=== PATIENT | male | born 1935 | race Caucasian/White ===

== ENCOUNTER 2018-04-06 09:35 | Inpatient (IN) ==
[2018-04-06] MEDS ORDERED: Naloxone 0.4 MG/ML INJ IVP PRN (11:46)
[2018-04-06] MEDS ORDERED: traMADol 50 MG TABLET PO PRN (11:46)
[2018-04-06] MEDS ORDERED: *HR* Heparin 5,000 UNIT/ML VIAL IVP PRN ×4 (11:54→13:02)
[2018-04-06] MEDS ORDERED: *HR* Heparin 5,000 UNIT/ML VIAL IVP ONE ×2 (11:54→13:02)
[2018-04-06] MEDS ORDERED: Vancomycin 1 EACH in 0.9 % Sodium Chloride 250 ML IVPB SCH (12:00)
[2018-04-06] MEDS ORDERED: Heparin 25,000 UNIT/500 ML D5W 25,000 UNIT/500 ML BAG IVC SCH (12:00)
[2018-04-06] MEDS ORDERED: Aspirin 325 MG TABLET PO ONE (12:00)
[2018-04-06] MEDS ORDERED: *HR* Ticagrelor 90 MG TABLET PO ONE (12:01)
[2018-04-06] MEDS ORDERED: Acetaminophen 325 MG TABLET PO PRN (12:02)
[2018-04-06 12:33] LABS: Hematocrit 34.5 % (37.5-50.1); Hemoglobin 11.2 g/dL (12.9-16.9); Mean Corpuscular HGB Conc 32.5 g/dL (31.6-35.5); Mean Corpuscular Hemoglobin 28.2 pg (28.0-33.3); Mean Corpuscular Volume 86.9 fL (83.0-100.0); Mean Platelet Volume 9.5 fL (9.4-12.4); Platelet Count 215 K/mcL (140-400); Red Blood Count 3.97 M/mcL (4.19-5.50); Red Cell Distribution Width 13.6 % (11.5-14.5)
[2018-04-06 12:47] LABS: INR 1.2; Prothrombin Time 13.7 Seconds (9.4-12.1)
--- NOTE | 2018-04-06 13:06 | Cardiology Consult Note ---
<Marleny Bee - Last Filed: 04/06/18 13:18> Date of Encounter: 04/06/18 Time of Encounter: 12:30 Assessment and Plan (1) Elevated troponin Current Visit: No Status: Acute Patient presented to [place] ED found to have urosepsis, Tmax 103.[address] abd/pelvis demonstrated partially obstructive renal calculi. Troponin 2.0, 1.99. ST/T wave abnormalities noted, however were present in prior ECGs. No chest pain/discomfort. NSTEMI type I vs. II; suspect demand ischemia however ACS cannot be ruled out. Agree with IV heparin gtt; ideally infuse for 24-48 hours. Continue asa, statin, BB. Check TTE to eval structure and function. Continue to trend troponin. Given advanced age, dementia, and sepsis would recommend conservative approach at this time. Cardiac rehab not warranted at this time. Will continue to follow. (2) Sepsis Current Visit: Yes Status: Acute Sepsis secondary to obstructing renal calculi. Nephrology consulted; spoke with Hospitalist who also requested cardiac clearance prior to planned urologic procedure. On IV atb. T max 103.1 in the past few hours Qualifiers: Sepsis type: sepsis due to unspecified organism Qualified Code(s): A41.9 - Sepsis, unspecified organism (3) Preoperative cardiovascular examination Current Visit: Yes Status: Acute Requested risk stratification prior to Urologic procedure--reportedly planned for 04/07/18. Troponin 2.0, 1.9 in the setting of urosepsis. Patient denies chest pain or discomfort, however is alert to self/location only and has baseline dementia. ST/T wave abnormalities present on ECG, however were also present on prior ECGs. No prior CV work-up or testing noted. Resides at SNF, unable to describe activity obtaining 4 METs. Given clinical presentation including sepsis, would recommend proceeding with urgent/emergent urologic procedure without additional cardiac testing. Echo ordered, pending. Will further discuss and review with Dr. Bill Dukes. Discussion w patient/family: The assessment and plan as outlined above was discussed with the patient and/or family members who expressed understanding and agreement. All questions were answered. Thank you for involving us in the care of your patient. Please call with any questions. History of Present Illness Consult date: 04/06/18 Requesting physician: Fabien Francis Consult reason: Elevated troponin Chief complaint: Flu History of present illness: Mr. Green is a 82 year old male with PMHx significant of dementia who presented as a transfer from [place] ED, from SNF, due to urosepsis. Please note patient is a poor historian and unable to recall events surround [facility], he is pleasant however is oriented to location and person only. Upon exam, he tells me he has not felt well over the past several days, he reports he had "the flu." Per ED notes, patient had cough, elevated temperatures, and abnormal urine studies at the skilled nursing for the past 2-3 days; symptoms persistent so patient therefore was brought to [place] ED. Per notes, patient was hypoxic upon EMS arrival (SPO2 low 80's); he also had emesis en route to the ED. Labs/imaging indicate urosepsis. Troponin level was checked and was elevated at 2.0; Cardiology was then consulted for further management. No prior CV testing available. Past Med Surg Social Fam HX - Past Medical History Attestation: Yes The following information was validated with the patient. Source: old records reviewed Medical history: osteoporosis, other Additional medical history: VIT D DEF. Psychiatric history: no psych history - Past Surgical History Surgical History: other Additional surgical history: right hip fracture - Social History Smoking Status: Former smoker Smokeless Tobacco Status: No Alcohol use: none Drug use: none - Family History Father History Unknown: Yes Living Status: Mother History Unknown: Yes Living Status: Medications and Allergies RX: Magnesium Oxide [Magnesium] 400 mg PO DAILY 06/11/15 [History] RX: Vitamin B Complex [B Complex] 1 each PO BID 06/11/15 [History] Acetaminophen [Tylenol] 1,000 mg PO TID 11/01/15 [History] Escitalopram [Lexapro] 10 mg PO DAILY 11/01/15 [History] Cholecalciferol (Vitamin D3) [Vitamin D] 50,000 unit PO QMONTH 04/06/18 [History] Allergy/AdvReac Type Severity Reaction Status Date / Time cephalexin [From Keflex] Allergy See Verified 06/11/15 16:57 Comments All Systems Review: The remainder of the systems were reviewed and are negative - Cardiovascular Cardiovascular: as per [facility] Physical Examination Vital Signs, Last 4 Hours Temp Pulse Resp BP Pulse Ox 04/06/18 11:13 98.0 F 113 17 122/65 95 General: Conversant, No Apparent Distress, Other (pleasant, forgetful) HEENT: Atraumatic Cardiac: Other (tachycardiac) Lungs: Other (Decreased bases) Neuro: Alert and responsive (to self, location) Abdomen: Soft Skin: No rashes noted on visualized skin Musculoskeletal: No Chest Wall Tenderness Extremities: No Edema, Normal Pulses Results 04/06/18 12:18 Lab Results 04/06/18 04/06/18 04/06/18 12:18 12:18 12:18 WBC 15.9 H D Hgb 11.2 L Hct 34.5 L Plt Count 215 INR 1.2 Troponin I 1.99 H* Active Medications Acetaminophen (Tylenol) 650 mg PO Q6HR PRN PRN Reason: Fever >101 Stop: 10/06/18 12:03 Carvedilol (Coreg) 3.125 mg PO BIDWM [facility]; Protocol Stop: 10/06/18 17:01 Heparin Sodium (Porcine) (Heparin) 6,000 unit 70 unit/kg (6000 unit) IVP Q6HR PRN PRN Reason: SEE COMMENTS Stop: 10/06/18 13:03 Heparin Sodium (Porcine) (Heparin) 3,000 unit 35 unit/kg (3000 unit) IVP Q6H PRN PRN Reason: SEE COMMENTS Stop: 10/06/18 13:03 Dextrose/Sodium Chloride (D5% And 0.9% Nacl 1000 Ml) 1,000 mls @ 75 mls/hr IVC .[id number] [facility] Stop: 10/06/18 12:01 Piperacillin Sod/Tazobactam (Sod 3.375 gm/ Sodium Chloride) 100 mls @ 25 mls/hr IVPB Q8H [facility] Stop: 10/06/18 14:01 Heparin Sodium/Dextrose (Heparin 25,000 Unit/500 Ml D5w) 25,000 unit in 500 mls @ 24.052 mls/hr IVC .[id number] [facility]; Protocol Stop: 10/06/18 13:16 Vancomycin HCl 1,750 mg/ (Sodium Chloride) 500 mls @ 333.3 mls/hr IVPB ONCE ONE Stop: 04/06/18 14:37 Vancomycin HCl 1,250 mg/ (Sodium Chloride) 250 mls @ 166.67 mls/hr IVPB Q24H [facility] Stop: 10/07/18 13:01 Naloxone HCl (Narcan) 0.4 mg IVP Q2MIN PRN PRN Reason: SEE COMMENTS Stop: 10/06/18 11:47 Tramadol HCl (Ultram) 50 mg PO Q6HR PRN PRN Reason: Moderate Pain Stop: 10/06/18 11:47 - EKG Interpretation EKG results cardiology: personally reviewed Consult Discharge Plan - Plan Referrals: NONE,PCP [Primary Care Provider] - <Bill Dukes - Last Filed: 04/06/18 14:28> - Attending Attestation I have personally performed a face to face evaluation on this patient. I have reviewed and agree with the care plan. History and Exam by me shows: Presented for possible urosepsis. Troponin noted to be elevated of unclear significance, denies cardiac complaints. Would check echo but will likely not require invasive cardiac evaluation. Assessment and Plan Discussion w patient/family: The assessment and plan as outlined above was discussed with the patient and/or family members who expressed understanding and agreement. All questions were answered. Thank you for involving us in the care of your patient. Please call with any questions. History of Present Illness History of present illness: Mr. Green is a 82 year old male All Systems Review: The remainder of the systems were reviewed and are negative Physical Examination Vital Signs, Last 4 Hours Temp Pulse Resp BP Pulse Ox 04/06/18 13:30 95 04/06/18 11:13 98.0 F 113 17 122/65 95 Results 04/06/18 12:18 Lab Results 04/06/18 04/06/18 04/06/18 12:18 12:18 12:18 WBC 15.9 H D Hgb 11.2 L Hct 34.5 L Plt Count 215 INR 1.2 Troponin I 1.99 H*
[2018-04-06] MEDS: Heparin 25,000 UNIT/500 ML D5W 25,000 UNIT/500 ML BAG IVC SCH (13:42)
--- NOTE | 2018-04-06 13:46 | Internal Med History&Physical ---
Date of Encounter: 04/06/18 Time of Encounter: 13:42 Internal Medicine - H&P: HPI Chief complaint: fever of 103.0 Admitted From: Long-term Nursing Facility Plans for Post Hospital Care: Transfer [facility] History of present illness: Mr. Green is a 82 year old male H significant for Dementia and Osteoporosis. Patient was transferred to this hospital from [place] where he was taken from a [facility] due to high fever of 103.0 as per report. Patient reports that he has not been feeling well for the past couple of days. Patient is unable to provide much information due to his baseline dementia. The patient denies chest pain or flank pain, nausea, vomiting. Patient recently diagnosed with proteous in the urine. At [place] ED patient found to be febrile, Urine positive for a UTI. CT abd/pelvis done: 7 mm mid right ureteral calculus causing moderate proximal hydroureteronephrosis. For which a transfer was requested for further management and urology evaluation. Past Med Surg Social Fam HX - Past Medical History Medical history: osteoporosis, other Additional medical history: VIT D DEF. Psychiatric history: no psych history - Past Surgical History Surgical History: other Additional surgical history: right hip fracture - Social History Smoking Status: Former smoker Smokeless Tobacco Status: No Alcohol use: none Drug use: none - Family History Father History Unknown: Yes Living Status: Mother History Unknown: Yes Living Status: Internal Medicine - H&P: Meds RX: Magnesium Oxide [Magnesium] 400 mg PO DAILY 06/11/15 [History] RX: Vitamin B Complex [B Complex] 1 each PO BID 06/11/15 [History] Acetaminophen [Tylenol] 1,000 mg PO TID 11/01/15 [History] Escitalopram [Lexapro] 10 mg PO DAILY 11/01/15 [History] Cholecalciferol (Vitamin D3) [Vitamin D] 50,000 unit PO QMONTH 04/06/18 [History] Allergy/AdvReac Type Severity Reaction Status Date / Time cephalexin [From Keflex] Allergy See Verified 06/11/15 16:57 Comments All Systems PM: A 10-system review of systems was performed and is negative for pertinent findings except as documented above in the HPI. Review of systems: Unable to obtain thorough review of system due to patient dementia. - Cardiovascular Cardiovascular ROS IM: no chest pain, no dyspnea - Gastrointestinal Gastrointestinal: no abdominal pain, no nausea - Genitourinary Genitourinary ROS male: no urinary frequency, no urinary urgency - Constitutional Vitals: Temp Pulse Resp BP Pulse Ox 98.0 F 113 17 122/65 95 04/06/18 11:13 04/06/18 11:13 04/06/18 11:13 04/06/18 11:13 04/06/18 11:13 Exam: General: Awake, oriented to person, not time or place. No distress. Skin: Normal color, no rash, no lesions. HEENT: EOM, pupils equal, round and reactive. Cardiovascular: Tachycardia, Normal S1 & S2, no rubs, murmurs or gallops. Lungs: Clear to auscultation b/l, no wheezes, rales or crackles. Abdomen: Soft, non-tender, no rigidity. NABS in all 4 quadrants. No CVA tenderness. Extremities: No deformity, no edema or tenderness, no joint swelling or clubbing. Neurological: Baseline dementia. Unable to perform a complete neuro exam Rest of the physical exam is non contributory Internal Med - H&P Results - Labs CBC & Chem 7: 04/06/18 12:18 Labs: Short CBC 04/06/18 Range/Units 12:18 WBC 15.9 H D (4.3-11.1) K/mcL Hgb 11.2 L (12.9-16.9) g/dL Hct 34.5 L (37.5-50.1) % Plt Count 215 (140-400) K/mcL Cardiac Enzymes 04/06/18 Range/Units 12:18 Troponin I 1.99 H* (< 0.04) ng/mL - Assessment and plan (1) Urinary tract infection Current Visit: No Status: Acute Assessment and plan: Complicated UTI. Patient recently treated for proteous. Recurrent uti possible due to obstructive nephrolitiasis. Plan Blood and urine culture started on broad spectrum antibiotics Urology consulted repeat lactic acid Gentle IV hydration. Qualifiers: Urinary tract infection type: urethritis Qualified Code(s): N34.2 - Other urethritis (2) Elevated troponin Current Visit: No Status: Acute Assessment and plan: Possible due to Sepsis in the setting of UTI vs NSTEMI Plan Cardiology consulted Patient started on a Heparin drip Serial trops Carvedilol low dose atorvastatin aspirin 325mg/PO once Aspirin 81mg/PO daily TTE 12 lead EKG continue telemetry monitoring. (3) Hydronephrosis concurrent with and due to calculi of kidney and ureter Current Visit: No Status: Acute Assessment and plan: CT/CT abd pelvis wo no iv no oral IMPRESSION: 1. 7 mm mid right ureteral calculus causing moderate proximal hydroureteronephrosis. 2. 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 3. Patchy airspace opacities in the bilateral medial lung bases may reflect atelectasis, but nonspecific infectious or inflammatory pneumonitis including aspiration type are not excluded. Plan: urology has been consulted will follow recommendations. (4) MANFRED (acute kidney injury) Current Visit: Yes Status: Acute Assessment and plan: Possible due to obstructive uropathy vs low preload due to sepsis? Plan gentle IV hydration Avoid nephrotoxic medications (5) Dementia Current Visit: Yes Status: Chronic Qualifiers: Dementia type: unspecified type Dementia behavioral disturbance: without behavioral disturbance Qualified Code(s): F03.90 - Unspecified dementia without behavioral disturbance (6) DVT prophylaxis Current Visit: Yes Status: Acute Assessment and plan: patient on a heparin drip due to elevated trops. - Time Spent With Patient Total time spent is greater than 50% in coordination of care (as documented) at patient's floor/unit and/or counseling patient: 25 - 35 minutes
[2018-04-06] MEDS: Piperacillin/Tazobactam 3.375 GM in 0.9 % Sodium Chloride Mini Bag 100 ML IVPB SCH ×2 (14:16→21:33)
[2018-04-06 16:21] LABS: Bilirubin,Urine Negative (Negative); Blood,Urine Large (Negative); Clarity,Urine Cloudy (Clear); Color,Urine Dark Yellow (Yellow); Glucose,Urine (UA) Normal (Normal); Ketones,Urine Negative (Negative); Leukocyte Esterase,Urine Large (Negative); Nitrite,Urine Positive (Negative); PH,Urine 6.5 pH Units (5.0-8.0); Protein,Urine 100 mg/dL (Neg-Trace); Specific Gravity,Urine > 1.030 (1.010-1.025); Urobilinogen,Urine Normal (Normal)
[2018-04-06 16:25] LABS: Bacteria,Urine Few per hpf (None-Few); Hyaline Casts,Urine None Seen per lpf (None-Few); RBC,Urine 50-100 per hpf (0-3); Squamous Epithelial Cell,Urine None Seen per lpf (None-Few); WBC,Urine TNTC per hpf (0-3)
--- NOTE | 2018-04-06 17:42 | Urology - Consult Note ---
Date of Encounter: 04/06/18 Time of Encounter: 17:40 - Assessment and Plan (1) Sepsis Current Visit: Yes Status: Acute Assessment and plan: Continue broad-spectrum antibiotics until cultures return Qualifiers: Sepsis type: sepsis due to unspecified organism Qualified Code(s): A41.9 - Sepsis, unspecified organism (2) Hydronephrosis concurrent with and due to calculi of kidney and ureter Current Visit: No Status: Acute Assessment and plan: Patient was prepped and draped in normal sterile fashion. Timeout procedure performed. I then proceeded to place a flexible cystoscope into the patient's penis and advanced the bladder. I was able to cannulate the right ureteral o rifice using a Glidewire. I then placed a 6 x 28 cm stent with good curl seen in the right kidney and in the bladder using static KUB images for clarification. I then replaced the catheter into the patient's bladder. (3) Urinary tract infection Current Visit: No Status: Acute Assessment and plan: Continue with antibiotics until cultures return Qualifiers: Urinary tract infection type: urethritis Qualified Code(s): N34.2 - Other urethritis Urology CN:HPI Consult date: 04/06/18 Reason for consult Urology: Hydronephrosis Requesting physician: Fabien Francis History of present illness: Chriss is a 82-year-old male who was transferred from outside facility secondary to possible UTI with sepsis. Patient was found on CT scan of her proximal right mid ureteral stone. Patient denies any flank pain. He has been having some nausea and vomiting. Urinalysis was supposedly nitrite positive but I do not have this for review. Patient was also febrile at outside facility. Patient was found on transfer to have an elevated troponin of 2. Past Med Surg Social Fam HX - Past Medical History Medical history: osteoporosis, other Additional medical history: VIT D DEF. Psychiatric history: no psych history - Past Surgical History Surgical History: other Additional surgical history: right hip fracture - Social History Smoking Status: Former smoker Smokeless Tobacco Status: No Alcohol use: none Drug use: none - Family History Mother History Unknown: Yes Living Status: Father History Unknown: Yes Living Status: Medications and Allergies Magnesium Oxide [Magnesium] 400 mg PO DAILY 06/11/15 [History] Vitamin B Complex [B Complex] 1 each PO BID 06/11/15 [History] Acetaminophen [Tylenol] 1,000 mg PO TID 11/01/15 [History] Escitalopram [Lexapro] 10 mg PO DAILY 11/01/15 [History] Cholecalciferol (Vitamin D3) [Vitamin D] 50,000 unit PO QMONTH 04/06/18 [History] Allergy/AdvReac Type Severity Reaction Status Date / Time cephalexin [From Keflex] Allergy See Verified 06/11/15 16:57 Comments Review of Systems - Constitutional fever(s), no chills - EENT Nose, mouth and throat: no dizziness - Cardiovascular no chest pain - Respiratory no cough Exam Initial Vital Signs Temp Pulse Resp BP Pulse Ox 98.0 F 113 17 122/65 95 04/06/18 11:13 04/06/18 11:13 04/06/18 11:13 04/06/18 11:13 04/06/18 11:13 - General physical appearance Present: well developed, well nourished - Eyes Present: PERRL - Respiratory Present: normal respiratory effort - Cardiovascular Cardiovascular exam IM: RRR Urology Results - Labs 04/06/18 12:18 Abnormal lab results WBC 15.9 K/mcL (4.3-11.1) H D 04/06/18 12:18 RBC 3.97 M/mcL (4.19-5.50) L 04/06/18 12:18 Hgb 11.2 g/dL (12.9-16.9) L 04/06/18 12:18 Hct 34.5 % (37.5-50.1) L 04/06/18 12:18 PT 13.7 Seconds (9.4-12.1) H 04/06/18 12:18 Heparin Anti-Xa, Unfract 0.00 IU/mL (0.30-0.70) L 04/06/18 12:18 Troponin I 1.99 ng/mL (< 0.04) H* 04/06/18 12:18 Urine Clarity Cloudy (Clear) A 04/06/18 15:30 Ur Specific [place] > 1.030 (1.010-1.025) H 04/06/18 15:30 Urine Protein 100 mg/dL (Neg-Trace) H 04/06/18 15:30 Urine Blood Large (Negative) H 04/06/18 15:30 Urine Nitrite Positive (Negative) A 04/06/18 15:30 Ur Leukocyte Esterase Large (Negative) H 04/06/18 15:30 Urine Microscopic RBC 50-100 per hpf (0-3) H 04/06/18 15:30 Urine Microscopic WBC TNTC per hpf (0-3) H 04/06/18 15:30 All other labs normal. - Imaging CT scan - abdomen: image reviewed CT scan - pelvis: image reviewed Consult Discharge Plan - Plan Referrals: NONE,PCP [Primary Care Provider] -
[2018-04-06] MEDS: D5% in 0.9% NACL 1,000 ML IVC SCH (18:39)
[2018-04-07 03:21] LABS: Acinetobacter baumannii by PCR Not Detected (Not Detect); Candida albicans by PCR Not Detected (Not Detect); Candida glabrata by PCR Not Detected (Not Detect); Candida krusei by PCR Not Detected (Not Detect); Candida parapsilosis by PCR Not Detected (Not Detect); Candida tropicalis by PCR Not Detected (Not Detect); Enterobacter cloacae Cmplx PCR Not Detected (Not Detect); Enterobacteriaceae by PCR Not Detected (Not Detect); Enterococcus by PCR Not Detected (Not Detect); Escherichia coli by PCR Not Detected (Not Detect); Klebsiella oxytoca by PCR Not Detected (Not Detect); Klebsiella pneumoniae by PCR Not Detected (Not Detect); Proteus by PCR Not Detected (Not Detect); Pseudomonas aeruginosa by PCR Not Detected (Not Detect); Serratia marcescens by PCR Not Detected (Not Detect); Staphylococcus aureus by PCR Not Detected (Not Detect); Staphylococcus by PCR Not Detected (Not Detect); Streptococcus agalactiae(B)PCR Not Detected (Not Detect); Streptococcus by PCR Not Detected (Not Detect); Streptococcus pneumoniae PCR Not Detected (Not Detect); Streptococcus pyogenes (A) PCR Not Detected (Not Detect); blaKPC Carbapenem-Resist Gene Not Detected (Not Detect); mecA Methicillin-Resist Gene Not Detected (Not Detect); vanA/B Vancomycin-Resist Genes Not Detected (Not Detect)
[2018-04-07 03:23] LABS: Basophils % 0.4 %; Eosinophils # 0.1 K/mcL (0.0-0.6); Eosinophils % 0.8 %; Hematocrit 30.2 % (37.5-50.1); Hemoglobin 10.1 g/dL (12.9-16.9); Immature Granulocytes % 0.5 % (0-4); Lymphocytes # 1.2 K/mcL (0.6-4.6); Lymphocytes % 11.4 %; Mean Corpuscular HGB Conc 33.4 g/dL (31.6-35.5); Mean Corpuscular Hemoglobin 28.9 pg (28.0-33.3); Mean Corpuscular Volume 86.3 fL (83.0-100.0); Mean Platelet Volume 9.9 fL (9.4-12.4); Monocytes % 9.6 %; Neutrophils # 8.2 K/mcL (1.6-8.9); Platelet Count 183 K/mcL (140-400); Red Cell Distribution Width 13.9 % (11.5-14.5); Segmented Neutrophils % 77.3 %
[2018-04-07 03:42] LABS: Magnesium 1.9 mg/dL (1.6-2.6); Phosphorous 2.6 mg/dL (2.7-4.5)
[2018-04-07] MEDS: Piperacillin/Tazobactam 3.375 GM in 0.9 % Sodium Chloride Mini Bag 100 ML IVPB SCH ×3 (05:46→21:11)
[2018-04-07] MEDS: D5% in 0.9% NACL 1,000 ML IVC SCH (08:19)
--- NOTE | 2018-04-07 09:58 | Internal Med Progress Note ---
Hospitalist Progress Note - Encounter Date of Encounter: 04/07/18 Time of Encounter: 08:00 - Subjective Interval History: Patient was seen and examined at bedside At baseline is demented however he denies any chest pain, fever, nausea, vomiting, diarrhea, flank pain Denies pain - Exam Vitals: Temp Pulse Resp BP Pulse Ox 99.1 F 92 17 131/75 94 04/07/18 08:18 04/07/18 08:18 04/07/18 08:18 04/07/18 08:18 04/07/18 08:18 Exam: General: Patient is alert, oriented, no acute distress, speaks in full sentences Head: atraumatic, normocephalic, Eye: normal appearance, PERRL, no scleral icterus, no conjunctival injection ENT: mucous membranes moist, normal external ear exam Neck: normal inspection, trachea midline, full ROM, no carotid bruits Chest: normal inspection, symmetric chest rise Respiratory: Good respiratory effort. Bilateral breath sounds are clear without wheezing, crackles, or rhonchi. Cardiovascular: Regular rate and rhythm. s1 and s2 No clicks, rubs, gallops, or murmors. Abdomen: Bowel sounds present normoactive x-4 quadrants. Abdomen is soft, n ondistended. no Epigastric tenderness. No guarding or rebound. No organomegaly noted, musculoskeletal: Spontaneously moving all extremities. no edema, no calf tenderness Skin: warm, dry, intact. Neuro: Alert and oriented to himself and place ( knows this is [facility]) not to time ( does not know the year, however knows it is fall) or person ( does not know he president) Has baseline dementia Sensation light touch intact. Cranial nerves 2-12 is intact. Moving all extremities. Psych: Patient's affect is normal Herrera with minimal urine - Assessment and Plan (1) Gram negative sepsis Current Visit: Yes Status: Acute Assessment and Plan: Patient presented with tachycardia of 113, and fever of 103 from the alf Leukocytosis resolved Fever has resolved Was found to have urinary tract infection, along with 7 mm mid right ureteral calculus status post stent placement Was started on vancomycin and Zosyn for broad-spectrum coverage Vancomycin discontinued on 04/07 Will continue Zosyn Blood cultures from [facility] growing gram-negative rodswill follow [facility] (2) Hydronephrosis concurrent with and due to calculi of kidney and ureter Current Visit: No Status: Acute Assessment and Plan: Urology on board status post stent placement Has fully with minimal urine We will follow urology recommendations CT/CT abd pelvis wo no iv no oral IMPRESSION: 1. 7 mm mid right ureteral calculus causing moderate proximal hydroureteronephrosis. 2. 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 3. Patchy airspace opacities in the bilateral medial lung bases may reflect atelectasis, but nonspecific infectious or inflammatory pneumonitis including aspiration type are not excluded. (3) Complicated UTI (urinary tract infection) Current Visit: Yes Status: Acute Assessment and Plan: will continue zosyn Had previous Proteus UTI that was sensitive to zosyn urine cx are pending (4) Acute renal failure Current Visit: Yes Status: Acute Assessment and Plan: Most likely secondary to 7 mm mid right ureteral calculus causing moderate proximal hydroureteronephrosis. Status post stent placement by urology We will continue gentle hydration Strict intake and output Avoid nephrotoxic medications will continue to monitor renal functions closely (5) Elevated troponin Current Visit: No Status: Acute Assessment and Plan: On presentation to [facility] he was found to have elevated troponin of 1.99 which trended up to 3.28 and now 2.87 Most likely secondary to supply versus demand mismatch from sepsis/tachycardia cannot rule out underlying CAD Cardiology was consulted We will continue heparin drip Echocardiogram to evaluate LV function We will continue aspirin, statin, beta blockers (6) Dementia Current Visit: Yes Status: Chronic Assessment and Plan: Has history of dementia was likely exacerbated with the gram-negative bacteremia We will continue frequent redirection Fall precaution, aspiration precaution (7) DVT prophylaxis Current Visit: Yes Status: Acute Assessment and Plan: on heparin drip - Time Spent with Patient Total time spent is greater than 50% in coordination of care (as documented) at patient's floor/unit and/or counseling patient: Internal Medicine: Result - Labs CBC & Chem 7: 04/07/18 02:49 Labs: Short CBC 04/06/18 04/07/18 Range/Units 12:18 02:49 WBC 15.9 H D 10.6 (4.3-11.1) K/mcL Hgb 11.2 L 10.1 L (12.9-16.9) g/dL Hct 34.5 L 30.2 L (37.5-50.1) % Plt Count 215 183 (140-400) K/mcL Neutrophils # 8.2 (1.6-8.9) K/mcL Cardiac Enzymes 04/06/18 04/06/18 04/06/18 Range/Units 12:18 17:48 23:50 Troponin I 1.99 H* 1.84 H* 3.28 H* (< 0.04) ng/mL 04/07/18 Range/Units 06:24 Troponin I 2.87 H* (< 0.04) ng/mL Urine 04/06/18 Range/Units 15:30 Urine Color Dark Yellow (Yellow) Urine Clarity Cloudy A (Clear) Urine pH 6.5 (5.0-8.0) pH Units Ur Specific [place] > 1.030 H (1.010-1.025) Urine Protein 100 H (Neg-Trace) mg/dL Urine Glucose (UA) Normal (Normal) mg/dL - ABG Interpretation ABG results: PT/INR, D-dimer PT 13.7 Seconds (9.4-12.1) H 04/06/18 12:18 - Impressions Impressions Abdomen X-Ray 04/06/18 16:10 IMPRESSION: Fluoroscopy was utilized for the purposes of right ureteral stent deployment. Unremarkable bowel gas pattern. D/ / 04/06/2018 17:01:24 Rohan Hernandes MD / ian Interpreting Provider: Rohan Hernandes MD Consult Discharge Plan - Plan Referrals: NONE,PCP [Primary Care Provider] - (4) Acute renal failure Qualifiers: Acute renal failure type: unspecified Qualified Code(s): N17.9 - Acute kidney failure, unspecified (6) Dementia Qualifiers: Dementia type: unspecified type Dementia behavioral disturbance: without behavioral disturbance Qualified Code(s): F03.90 - Unspecified dementia without behavioral disturbance
[2018-04-07] MEDS ORDERED: Aminoglycoside Consult 1 EACH MC ONE (10:23)
[2018-04-07] MEDS: Aspirin 81 MG TAB.CHEW PO SCH (11:18)
[2018-04-07] MEDS: Heparin 25,000 UNIT/500 ML D5W 25,000 UNIT/500 ML BAG IVC SCH (11:20)
[2018-04-07] MEDS: Cholecalciferol (D-3) 1,000 UNIT TABLET PO SCH (11:27)
--- NOTE | 2018-04-07 11:54 | Electrocardiograph Report ---
[address] [place] [address] Test Date: 2018-04-06 Pat Name: Chriss Green Department: 111 Room: 2NE18 Gender: M [employer] Director: : [id number] Requested By: Fabien Francis Order Number: [id number] Reading MD: Elis Yip Measurements Intervals [place] Rate: 106 P: 40 CT: 147 QRS: -5 QRSD: 93 T: -12 QT: 337 QTc: 399 Interpretive Statements SINUS TACHYCARDIA INFERIOR MYOCARDIAL INFARCTION, PROBABLY OLD Electronically Signed On 04-07-2018 11:53:15 EDT by Elis Yip
--- NOTE | 2018-04-07 12:15 | Urology Progress Note ---
Date of Encounter: 04/07/18 Time of Encounter: 12:13 - Assessment and Plan (1) Sepsis Current Visit: Yes Status: Inactive Assessment and plan: Recommend to continue broad-spectrum antibiotics until cultures return. Patient will need two-week course of antibiotics Qualifiers: Sepsis type: sepsis due to unspecified organism Qualified Code(s): A41.9 - Sepsis, unspecified organism (2) Hydronephrosis concurrent with and due to calculi of kidney and ureter Current Visit: No Status: Acute Assessment and plan: Status post right ureteral stent placement. Patient will be scheduled in my office for a follow-up visit. Urology to signoff please call with any questions. (3) Urinary tract infection Current Visit: No Status: Acute Qualifiers: Urinary tract infection type: urethritis Qualified Code(s): N34.2 - Other urethritis Progress Note Narrative: patient seen. sp right ureteral stent placement yesterday. Patient feeling better today. Catheter draining clear urine. Blood cultures from outside fac ility growing gram-negative rods Objective Initial Vital Signs Temp Pulse Resp BP Pulse Ox 98.0 F 113 17 122/65 95 04/06/18 11:13 04/06/18 11:13 04/06/18 11:13 04/06/18 11:13 04/06/18 11:13 - General physical appearance Present: well developed, well nourished - Respiratory Present: normal expansion - Abdomen Present: soft - Genitourinary Present: other (Clear urine in the catheter) - Labs 04/07/18 02:49 Calcium panel 04/07/18 Range/Units 02:49 Phosphorus 2.6 L (2.7-4.5) mg/dL Consult Discharge Plan - Plan Referrals: NONE,PCP [Primary Care Provider] -
--- NOTE | 2018-04-07 13:10 | Cardiology Progress Note ---
Date of Encounter: 04/07/18 Time of Encounter: 12:30 Assessment and Plan (1) Elevated troponin Current Visit: No Status: Acute Per cardiology: -Patient presented to [place] ED found to have urosepsis, Tmax 103.5 -CT abd/pelvis demonstrated partially obstructive renal calculi. -Troponin 2.0, 1.99, 1.84, 3.28, 2.87. - ST/T wave abnormalities noted, however were present in prior ECGs. No chest pain/discomfort. -NSTEMI type I vs. II; suspect demand ischemia however ACS cannot be ruled out. -Agree with IV heparin gtt; ideally infuse for 24-48 hours. Continue asa, statin, BB. -TTE with LVEF 60%, no segmental wall motion abnormalities noted. -Given advanced age, dementia, preserved LVEF, and sepsis would recommend conservative approach at this time. Cardiac rehab not warranted at this time. Continue heparin drip for 24-48 hours. -Cardiology will sign off and will follow in outpatient setting. FOllow up set. (2) Sepsis Current Visit: Yes Status: Acute Per cardiology: -Sepsis. -Management per primary service. Qualifiers: Sepsis type: sepsis due to unspecified organism Qualified Code(s): A41.9 - Sepsis, unspecified organism Discussion w patient/family: The assessment and plan as outlined above was discussed with the patient who expressed understanding and agreement. All questions were answered. Thank you for involving us in the care of your patient. Please call with any questions. Discussed and reviewed with Dr.John espinoza. Subjective Principal diagnosis: sepsis Interval history: Patient denies chest pain. Denies shortness of breath Objective Vital Signs, Last 4 Hours Temp Pulse Resp BP Pulse Ox 04/07/18 10:18 99.1 F 80 18 128/73 96 General: Conversant, No Apparent Distress HEENT: Atraumatic, Normocephaly, Mucus Membranes Moist Neck: No JVD, Normal carotid pulses Cardiac: Reg Rate and Rhythm, Normal S1 and S2, No Murmur Lungs: Normal Breath Sounds, No Wheeze, Rales, Rhonchi Neuro: Alert and responsive, No focal deficits noted Abdomen: Soft, Non-Tender Skin: No rashes noted on visualized skin Musculoskeletal: No Chest Wall Tenderness Extremities: No Clubbing, No Cyanosis, No Edema, Normal Pulses Results 04/07/18 02:49 Lab Results Impressions Abdomen X-Ray 04/06/18 16:10 IMPRESSION: Fluoroscopy was utilized for the purposes of right ureteral stent deployment. Unremarkable bowel gas pattern. D/ / 04/06/2018 17:01:24 Rohan Hernandes MD / ian Interpreting Provider: Rohan Hernandes MD Echocardiogram 04/07/18 07:44 Impressions: LVEF 60%. Atypical septal motion. Indeterminate diastolic function. RV is mildly dilated. Function is normal. Mild-moderate mitral regurgitation. Mild-moderate tricuspid regurgitation. Active Medications Acetaminophen (Tylenol) 650 mg PO Q6HR PRN PRN Reason: Fever >101 Stop: 10/06/18 12:03 Aspirin (Aspirin) 81 mg PO DAILY [facility] Stop: 10/07/18 09:01 Last Admin: 04/07/18 11:18 Dose: 81 mg Atorvastatin Calcium (Lipitor) 40 mg PO HS [facility] Stop: 10/07/18 07:46 Last Admin: 04/07/18 11:26 Dose: 40 mg Carvedilol (Coreg) 3.125 mg PO BIDWM [facility]; Protocol Stop: 10/06/18 17:01 Last Admin: 04/07/18 11:18 Dose: 3.125 mg Escitalopram Oxalate (Lexapro) 10 mg PO DAILY [facility] Stop: 10/08/18 09:01 Heparin Sodium (Porcine) (Heparin) 6,000 unit 70 unit/kg (6000 unit) IVP Q6HR PRN PRN Reason: SEE COMMENTS Stop: 10/06/18 13:03 Heparin Sodium (Porcine) (Heparin) 3,000 unit 35 unit/kg (3000 unit) IVP Q6H [place] N PRN Reason: SEE COMMENTS Stop: 10/06/18 13:03 Piperacillin Sod/Tazobactam (Sod 3.375 gm/ Sodium Chloride) 100 mls @ 25 mls/hr IVPB Q8H [facility] Stop: 10/06/18 14:01 Last Admin: 04/07/18 05:46 Dose: 25 mls/hr Heparin Sodium/Dextrose (Heparin 25,000 Unit/500 Ml D5w) 25,000 unit in 500 mls @ 24.052 mls/hr IVC .[id number] [facility]; Protocol Stop: 10/06/18 13:16 Last Admin: 04/07/18 11:20 Dose: 14 unit/kg/hr, 24.052 mls/hr Sodium Chloride (0.9 % Sodium Chloride) 1,000 mls @ 50 mls/hr IVC .Q20H [facility] Stop: 10/07/18 10:31 Sodium Phosphate 30 mmol/ (Sodium Chloride) 260 mls @ 42 mls/hr IVPB ONCE ONE Stop: 04/07/18 18:05 Magnesium Oxide (Mag-Ox) 400 mg PO DAILY [facility]; Protocol Stop: 10/08/18 09:01 Naloxone HCl (Narcan) 0.4 mg IVP Q2MIN PRN PRN Reason: SEE COMMENTS Stop: 10/06/18 11:47 Tramadol HCl (Ultram) 50 mg PO Q6HR PRN PRN Reason: Moderate Pain Stop: 10/06/18 11:47 Vitamin B Complex/Vit C/Vit E (Stresstab) 1 each PO BID [facility] Stop: 10/07/18 21:01 Vitamin D (Vitamin D) 1,000 unit PO DAILY [facility] Stop: 10/07/18 10:16 Last Admin: 04/07/18 11:27 Dose: 1,000 unit Laboratory Tests 04/06/18 04/06/18 04/06/18 08:10 12:18 17:48 Hgb Troponin I 2.00 H* 1.99 H* 1.84 H* 04/06/18 04/07/18 04/07/18 23:50 02:49 06:24 Hgb 10.1 L Troponin I 3.28 H* 2.87 H* - Imaging and Cardiology Chest Xray: report reviewed Echo: report reviewed - EKG Interpretation EKG results cardiology: other (Telemetry reviewed with average HR previous 12 hours noted to be 83, SR. PVCs PACs noted. ONe short run of a.tach noted.) Consult Discharge Plan - Plan Referrals: NONE,PCP [Primary Care Provider] -
[2018-04-07] MEDS: 0.9 % Sodium Chloride 1,000 ML IVC SCH (14:15)
[2018-04-07] MEDS: Vitamin B Complex/Vit C/Vit E 1 EACH TABLET PO SCH (21:12)
[2018-04-08 04:54] LABS: Hematocrit 28.5 % (37.5-50.1); Hemoglobin 9.4 g/dL (12.9-16.9); Mean Corpuscular Hemoglobin 28.7 pg (28.0-33.3); Mean Corpuscular Volume 87.2 fL (83.0-100.0); Mean Platelet Volume 9.9 fL (9.4-12.4); Platelet Count 176 K/mcL (140-400); Red Blood Count 3.27 M/mcL (4.19-5.50)
[2018-04-08 05:12] LABS: BUN/Creatinine Ratio 21 (6-26); Blood Urea Nitrogen 22 mg/dL (8-23); Carbon Dioxide 24 mEq/L (23-29); Chloride 106 mEq/L (98-107); Glucose 111 mg/dL (70-105); Osmolality,Calculated 286 (280-300); Potassium 3.4 mEq/L (3.5-5.1); Sodium 136 mEq/L (136-145); eGFR For Non-African Americans > 60 (> 60)
[2018-04-08] MEDS: Piperacillin/Tazobactam 3.375 GM in 0.9 % Sodium Chloride Mini Bag 100 ML IVPB SCH ×3 (05:41→23:00)
[2018-04-08] MEDS: 0.9 % Sodium Chloride 1,000 ML IVC SCH (05:42)
[2018-04-08] MEDS: Heparin 25,000 UNIT/500 ML D5W 25,000 UNIT/500 ML BAG IVC SCH (05:44)
[2018-04-08] MEDS: Cholecalciferol (D-3) 1,000 UNIT TABLET PO SCH (08:04)
[2018-04-08] MEDS: Aspirin 81 MG TAB.CHEW PO SCH (08:04)
[2018-04-08] MEDS: Vitamin B Complex/Vit C/Vit E 1 EACH TABLET PO SCH ×2 (08:05→22:01)
[2018-04-08] MEDS: Magnesium Oxide 400 MG TABLET PO SCH (08:05)
--- NOTE | 2018-04-08 09:58 | Internal Med Progress Note ---
Hospitalist Progress Note - Encounter Date of Encounter: 04/08/18 Time of Encounter: 08:00 - Subjective Interval History: Patient was seen and examined at bedside At baseline is demented however he denies any chest pain, fever, nausea, vomiting, diarrhea, flank pain tolerating PO diet no complaints - Exam Vitals: Temp Pulse Resp BP Pulse Ox 99.0 F 84 18 123/69 94 04/08/18 07:01 04/08/18 07:01 04/08/18 07:01 04/08/18 07:01 04/08/18 07:01 Exam: General: Patient is alert, oriented, no acute distress, speaks in full sentences Head: atraumatic, normocephalic, Eye: normal appearance, PERRL, no scleral icterus, no conjunctival injection ENT: mucous membranes moist, normal external ear exam Neck: normal inspection, trachea midline, full ROM, no carotid bruits Chest: normal inspection, symmetric chest rise Respiratory: Good respiratory effort. Bilateral breath sounds are clear without wheezing, crackles, or rhonchi. Cardiovascular: Regular rate and rhythm. s1 and s2 No clicks, rubs, gallops, or murmors. Abdomen: Bowel sounds present normoactive x-4 quadrants. Abdomen is soft, nondistended. no Epigastric tenderness. No guarding or rebound. No organomeg ever noted, musculoskeletal: Spontaneously moving all extremities. no edema, no calf tenderness Skin: warm, dry, intact. Neuro: Alert and oriented to himself and place ( knows this is [facility]) not to ti me ( does not know the year, however knows it is fall) or person ( does not know he president) Has baseline dementia Sensation light touch intact. Cranial nerves 2-12 is intact. Moving all extremities. Psych: Patient's affect is normal Goss with minimal urine - Assessment and Plan (1) Gram negative sepsis Current Visit: Yes Status: Acute Assessment and Plan: Patient presented with tachycardia of 113, and fever of 103 from the [facility] Leukocytosis resolved Fever has resolved Was found to have urinary tract infection, along with 7 mm mid right ureteral calculus status post stent placement Was started on vancomycin and Zosyn for broad-spectrum coverage Vancomycin discontinued on 04/07 Will continue Zosyn Blood cultures from [facility] growing gram-negative rodswill follow sensitivity ucx growing gram negative rods- will follow sensitivity bcx from [facility] [place] pending (2) Hydronephrosis concurrent with and due to calculi of kidney and ureter Current Visit: No Status: Acute Assessment and Plan: Urology on board status post stent placement Has fully with minimal urine We will follow urology recommendations CT/CT abd pelvis wo no iv no oral IMPRESSION: 1. 7 mm mid right ureteral calculus causing moderate proximal hydroureteronephrosis. 2. 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 3. Patchy airspace opacities in the bilateral medial lung bases may reflect atelectasis, but nonspecific infectious or inflammatory pneumonitis including aspiration type are not excluded. (3) Complicated UTI (urinary tract infection) Current Visit: Yes Status: Acute Assessment and Plan: will continue zosyn Had previous Proteus UTI that was sensitive to zosyn urine cx with gram negative thaddeus - follow sensitivity (4) Acute renal failure Current Visit: Yes Status: Resolved Assessment and Plan: Most likely secondary to 7 mm mid right ureteral calculus causing moderate proximal hydroureteronephrosis. Status post stent placement and goss by urology resolved Strict intake and output Avoid nephrotoxic medications will continue to monitor renal functions closely (5) Elevated troponin Current Visit: No Status: Acute Assessment and Plan: On presentation to [facility] he was found to have elevated troponin of 1.99 which trended up to 3.28 and now 2.87 Most likely secondary to supply versus demand mismatch from sepsis/tachycardia cannot rule out underlying CAD Cardiology was consulted heparin drip for 48 hours- discontinue today 04/08 ( was started on 04/06) continue aspirin, statin, beta blockers TTE: Impressions: LVEF 60%. Atypical septal motion. Indeterminate diastolic function. RV is mildly dilated. Function is normal. Mild-moderate mitral regurgitation. Mild-moderate tricuspid regurgitation. (6) Dementia Current Visit: Yes Status: Chronic Assessment and Plan: Has history of dementia was likely exacerbated with the gram-negative bacteremia We will continue frequent redirection Fall precaution, aspiration precaution (7) DVT prophylaxis Current Visit: Yes Status: Acute Assessment and Plan: heparin sc - Time Spent with Patient Total time spent is greater than 50% in coordination of care (as documented) at patient's floor/unit and/or counseling patient: Internal Medicine: Result - Labs CBC & Chem 7: 04/08/18 04:28 04/08/18 04:28 Labs: Short CBC 04/08/18 Range/Units 04:28 WBC 7.4 (4.3-11.1) K/mcL Hgb 9.4 L (12.9-16.9) g/dL Hct 28.5 L (37.5-50.1) % Plt Count 176 (140-400) K/mcL BMP 04/08/18 04:28 Sodium 136 Potassium 3.4 L Chloride 106 Carbon Dioxide 24 BUN 22 Creatinine 1.03 Glucose 111 H Calcium 8.0 L - ABG Interpretation ABG results: PT/INR, D-dimer PT 13.7 Seconds (9.4-12.1) H 04/06/18 12:18 - Impressions Impressions Echocardiogram 04/07/18 07:44 Impressions: LVEF 60%. Atypical septal motion. Indeterminate diastolic function. RV is mildly dilated. Function is normal. Mild-moderate mitral regurgitation. Mild-moderate tricuspid regurgitation. Consult Discharge Plan - Plan Referrals: NONE,PCP [Primary Care Provider] - (4) Acute renal failure Qualifiers: Acute renal failure type: unspecified Qualified Code(s): N17.9 - Acute kidney failure, unspecified (6) Dementia Qualifiers: Dementia type: unspecified type Dementia behavioral disturbance: without behavioral disturbance Qualified Code(s): F03.90 - Unspecified dementia without behavioral disturbance
[2018-04-08] MEDS: *HR* Heparin 5,000 UNIT/ML VIAL SQ SCH ×2 (16:21→22:01)
[2018-04-08 19:29] LABS: Acinetobacter baumannii by PCR Not Detected (Not Detect); Enterobacter cloacae Cmplx PCR Not Detected (Not Detect); Enterobacteriaceae by PCR DETECTED (Not Detect); Enterococcus by PCR Not Detected (Not Detect); Escherichia coli by PCR Not Detected (Not Detect); Klebsiella oxytoca by PCR Not Detected (Not Detect); Klebsiella pneumoniae by PCR Not Detected (Not Detect); Staphylococcus aureus by PCR Not Detected (Not Detect); Staphylococcus by PCR Not Detected (Not Detect); Streptococcus agalactiae(B)PCR Not Detected (Not Detect); Streptococcus by PCR Not Detected (Not Detect); Streptococcus pneumoniae PCR Not Detected (Not Detect); Streptococcus pyogenes (A) PCR Not Detected (Not Detect); blaKPC Carbapenem-Resist Gene Not Detected (Not Detect)
[2018-04-08 19:30] LABS: Candida albicans by PCR Not Detected (Not Detect); Candida glabrata by PCR Not Detected (Not Detect); Candida krusei by PCR Not Detected (Not Detect); Candida parapsilosis by PCR Not Detected (Not Detect); Candida tropicalis by PCR Not Detected (Not Detect); Proteus by PCR DETECTED (Not Detect); Pseudomonas aeruginosa by PCR Not Detected (Not Detect); Serratia marcescens by PCR Not Detected (Not Detect)
[2018-04-09 05:11] LABS: Hematocrit 29.3 % (37.5-50.1); Hemoglobin 9.5 g/dL (12.9-16.9); Mean Corpuscular HGB Conc 32.4 g/dL (31.6-35.5); Mean Corpuscular Hemoglobin 28.3 pg (28.0-33.3); Mean Corpuscular Volume 87.2 fL (83.0-100.0); Mean Platelet Volume 10.1 fL (9.4-12.4); Platelet Count 221 K/mcL (140-400); Red Blood Count 3.36 M/mcL (4.19-5.50); Red Cell Distribution Width 13.3 % (11.5-14.5)
[2018-04-09 05:28] LABS: BUN/Creatinine Ratio 20 (6-26); Blood Urea Nitrogen 18 mg/dL (8-23); Calcium 8.6 mg/dL (8.6-10.3); Carbon Dioxide 24 mEq/L (23-29); Chloride 107 mEq/L (98-107); Glucose 97 mg/dL (70-105); Osmolality,Calculated 288 (280-300); Potassium 3.7 mEq/L (3.5-5.1); Sodium 138 mEq/L (136-145); eGFR For Non-African Americans > 60 (> 60)
[2018-04-09] MEDS: Piperacillin/Tazobactam 3.375 GM in 0.9 % Sodium Chloride Mini Bag 100 ML IVPB SCH ×2 (05:32→14:51)
[2018-04-09] MEDS: *HR* Heparin 5,000 UNIT/ML VIAL SQ SCH ×2 (05:32→14:52)
[2018-04-09] MEDS: Aspirin 81 MG TAB.CHEW PO SCH (09:58)
[2018-04-09] MEDS: Cholecalciferol (D-3) 1,000 UNIT TABLET PO SCH (09:58)
[2018-04-09] MEDS: Vitamin B Complex/Vit C/Vit E 1 EACH TABLET PO SCH (09:58)
[2018-04-09] MEDS: Magnesium Oxide 400 MG TABLET PO SCH (09:58)
--- NOTE | 2018-04-09 16:18 | Discharge Summary ---
- NOTES TO OUTPATIENT PROVIDER Notes to Outpatient Provider: PCP in 5 to 7 days Orders not resulted at time of discharge: Pending orders 04/06/18 12:18 Culture,Blood [BC] Stat 04/09/18 00:08 GI Panel,Stool [MOLMIC] ONCE Date of Encounter: 04/09/18 Time of Encounter: 16:15 - Discharge Diagnosis (1) Hydronephrosis concurrent with and due to calculi of kidney and ureter Priority: Primary Status: Acute Assessment and Plan: Urology on board status post stent placement Has goss with minimal urine. Pt has no prior history or urinary retention. Will DC goss Out pt follow up with urology at discharge. CT/CT abd pelvis wo no iv no oral IMPRESSION: 1. 7 mm mid right ureteral calculus causing moderate proximal hydroureteronephrosis. 2. 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 3. Patchy airspace opacities in the bilateral medial lung bases may reflect atelectasis, but nonspecific infectious or inflammatory pneumonitis including aspiration type are not excluded. (2) Acute cystitis Priority: Primary Status: Acute Assessment and Plan: will continue zosyn Had previous Proteus UTI that was sensitive to zosyn urine cx with gram negative thaddeus - follow sensitivity Qualifiers: Qualified Code(s): N30.01 - Acute cystitis with hematuria (3) Elevated troponin Priority: Primary Status: Acute Assessment and Plan: On presentation to [facility] he was found to have elevated troponin of 1.99 which trended up to 3.28 and now 2.87 Most likely secondary to supply versus demand mismatch from sepsis/tachycardia cannot rule out underlying CAD Cardiology was consulted, heparin drip for 48 hours- discontinue today 04/08 ( was started on 04/06) Cardiology recommends medicl management and continue aspirin, statin, and beta blockers. TTE: Impressions: LVEF 60%. Atypical septal motion. Indeterminate diastolic function. RV is mildly dilated. Function is normal. Mild-moderate mitral regurgitation. Mild-moderate tricuspid regurgitation. (4) Dementia Priority: Secondary Status: Chronic Assessment and Plan: Acute delirium in pt with history of dementia. Delirium was likely exacerbated with the gram-negative bacteremia Resolved. Recommend resume home medication. Underlying infection has been treated with antibiotic Qualifiers: Dementia type: unspecified type Dementia behavioral disturbance: without behavioral disturbance Qualified Code(s): F03.90 - Unspecified dementia without behavioral disturbance (5) Gram negative sepsis Priority: Primary Status: Acute Assessment and Plan: Patient presented with tachycardia of 113, and fever of 103 from the [facility] Leukocytosis resolved. Fever has resolved Was found to have urinary tract infection, along with 7 mm mid right ureteral calculus status post stent placement Was started on vancomycin and Zosyn for broad-spectrum coverage Vancomycin discontinued on 04/07. Continued on Zosyn pending cultures. Blood and urine cultures positive for proteus mirabilis. Organism sensitive to cephalosporin. Will DC on omnicef x 10 days. (6) Acute renal failure Priority: Primary Status: Resolved Assessment and Plan: Resolved. Most likely secondary to 7 mm mid right ureteral calculus causing moderate proximal hydroureteronephrosis. Status post stent placement and goss by urology Qualifiers: Acute renal failure type: unspecified Qualified Code(s): N17.9 - Acute kidney failure, unspecified Hospital course: Mr. Green is a 82 year old male with past medical history of dementia and OA who was a transfer from [place]. Pt presented with temp 103. He was recently diagnosed with proteus mirabilis. At [place] ED patient was found to be febrile, Urine positive for a UTI. CT abd/pelvis done showed: 7 mm mid right ureteral calculus causing moderate pr oximal hydroureteronephrosis. For which a transfer was requested for further management and urology evaluation. He had goss placed due to hydronephrosis and he is s/p post right ureteral stent placement. See assessment and plan for complete hospital course. Discharge discussed with: patient - Time Spent with Patient Total time spent providing and/or coordinating discharge services: Greater than 30 minutes - Discharge Medications Home Medications: Acetaminophen [Tylenol] 500 - 1,000 mg PO Q6H PRN 11/01/15 [History] Aspirin [Lo-Dose Aspirin EC] 81 mg PO DAILY PRN 04/07/18 [History] Cefdinir [Omnicef] 300 mg PO BID 10 Days #20 capsule 04/09/18 [Rx] Escitalopram [Lexapro] 10 mg PO DAILY 04/09/18 [History] Allergies/Adverse Reactions: Allergy/AdvReac Type Severity Reaction Status Date / Time cephalexin [From Keflex] Allergy See Verified 04/07/18 14:52 Comments Date of admission: 04/06/18 11:07 Primary care physician: PCP NONE Consults: 04/06/18 11:50 Consult to Cardiology [CONS] Routine Comment: Consulting Provider: Cardiology [place] Reason for Consult: elevated trops Call Completed: No 04/06/18 11:55 Consult to Urology [CONS] Routine Consulting Provider: [facility] [place] Reason for Consult: 7 mm mid right ureteral calculus causing moderate proximal hydroureteronephrosis. Call Completed: Yes 04/08/18 12:04 Consult to Case Management [CONS] Routine Comment: Consult to Physical Therapy [CONS] Routine Comment: Evaluate, develop and implement POC Reason for Consult: dispostion Does patient have active BEDREST order?: No Is patient medically & hemodynamically stable?: Yes Patient assessed for mobility or mobilized this visit?: Yes OT [Consult to Occupational Therapy] [CONS] Routine Comment: Evaluate, develop and implement POC Reason for Consult: disposition Does patient have active BEDREST order?: No Is patient medically & hemodynamically stable?: Yes Patient assessed for mobility or mobilized this visit?: Yes Discharging clinician: Alecia Connor Anticipated date of discharge: 04/09/18 - Constitutional Vitals: Temp Pulse Resp BP Pulse Ox 98 F 93 16 127/57 92 04/09/18 12:00 04/09/18 12:00 04/09/18 12:00 04/09/18 12:00 04/09/18 12:00 General appearance: Present: A&O X 3, no acute distress Exam: . - Head Head exam: Present: atraumatic, normocephalic - Eye Eye exam: Present: PERRL, conjuntiva pink, sclera anicteric Pupils: Present: PERRL - Neck Neck exam general surgery: Present: supple, trachea midline. Absent: lymphadenopathy - Respiratory Respiratory exam: Present: CTAB. Absent: accessory muscle use, rales, rhonchi, wheezes - Cardiovascular Cardiovascular exam: Present: RRR, +S1, +S2. Absent: diastolic murmur, gallop, rubs, systolic murmur - GI/Abdominal GI/Abdominal exam: Present: normal bowel sounds, soft, no peritoneal signs. Absent: distended, tenderness - Extremities Exam Extremities exam: Present: warm, radial pulses palpable and symmetrical. Absent: calf tenderness, cyanotic, pedal edema - Neurological Exam Neurological exam: Present: CN II-XII intact, oriented X3, no focal deficits. Absent: pronater drift, facial droop, speech deficit Additional comments: Alert and oriented to himself and place ( knows this is [facility]) not to time ( does not know the year, however knows it is fall) or person ( does not know he president) Has baseline dementia Sensation light touch intact. Cranial nerves 2-12 is intact. Moving all extremities. - Skin Skin exam: Present: dry, intact - Patient Status Disposition: Home, Self-Care Condition: Good Overall status at discharge: patient is progressing back to baseline - Discharge Instructions Follow Up With: NONE,PCP [Primary Care Provider] - - Diet and Activity Activity: increase activity as tolerated Diet: low fat, low cholesterol, low salt diet
--- NOTE | 2018-04-09 16:36 | Physician Discharge Referral ---
ExtendedCare Referral Info Provider in Charge after Transfer: PCP Institutional Level of Care: Skilled - Diagnosis (1) Hydronephrosis concurrent with and due to calculi of kidney and ureter Priority: Primary Status: Acute (2) Acute cystitis Priority: Secondary Status: Acute (3) Elevated troponin Priority: Secondary Status: Acute (4) Dementia Priority: Secondary Status: Chronic (5) Gram negative sepsis Priority: Primary Status: Acute (6) Acute renal failure Priority: Primary Status: Resolved Prognosis: Fair Aware of Diagnosis: Patient - Transfer Medications Prescriptions: Cefdinir [Omnicef] 300 mg PO BID 10 Days #20 capsule Home Medications: Acetaminophen [Tylenol] 500 - 1,000 mg PO Q6H PRN 11/01/15 [History] Aspirin [Lo-Dose Aspirin EC] 81 mg PO DAILY PRN 04/07/18 [History] Cefdinir [Omnicef] 300 mg PO BID 10 Days #20 capsule 04/09/18 [Rx] Escitalopram [Lexapro] 10 mg PO DAILY 04/09/18 [History] Allergies/Adverse Reactions: Allergy/AdvReac Type Severity Reaction Status Date / Time cephalexin [From Keflex] Allergy See Verified 04/07/18 14:52 Comments - Respiratory Orders Smoking Cessation: Smoking cessation has been advised. For more information, call the [place] Tobacco Quit Line at 2-432-RRPFNOW. - Advance Directives Code Status: Full Code - Diet Orders Cardiac CERTIFICATION: I certify that the transfer of the above named patient to an Extended Care Facility is necessary for the continuing treatment of the diagnosis listed. The above information is true and accurate reflection of patient's current condition. Confidential - Redisclosure prohibited without a patient's written consent.
[2018-04-09 19:34] VITALS: BP 124/65
--- NOTE | 2018-04-10 17:09 | Electrocardiograph Report ---
[place] [address] Test Date: 2018-04-07 Pat Name: Chriss Green Department: 111 Room: 2NE18 Gender: M [employer]: : [id number] Requested By: Royer Vásquez Order Number: [id number] Reading MD: Bill Dukes Measurements Intervals [place] Rate: 93 P: 32 PA: 141 QRS: -2 QRSD: 96 T: -17 QT: 363 QTc: 413 Interpretive Statements SINUS RHYTHM NONSPECIFIC T-WAVE ABNORMALITY Electronically Signed On 04-10-2018 17:07:49 EDT by Bill Dukes
== END 2018-04-09 07:15 | disposition home or self-care (01) | DRG 854 ==
LOC: 2NENU 11:07
PROVIDERS: ADMIT Internal Medicine; ATTEND Internal Medicine

== ENCOUNTER 2021-02-07 16:26 | Inpatient (IN) ==
[2021-02-07] MEDS ORDERED: Naloxone 0.4 MG/ML INJ IVP PRN (21:51)
[2021-02-07] MEDS ORDERED: Melatonin 3 MG TABLET PO PRN (21:51)
[2021-02-07] MEDS ORDERED: Ondansetron ODT 4 MG TAB.RAPDIS SL PRN (21:51)
[2021-02-07] MEDS ORDERED: Potassium Chloride Elixir 20 MEQ/15 ML UDC PO ONE (21:56)
[2021-02-07] MEDS ORDERED: Perflutren Lipid Microsphere 1.3 ML in 0.9 % Sodium Chloride 8.7 ML IVP PRN (22:01)
[2021-02-07] MEDS ORDERED: *HR* Heparin 5,000 UNIT/ML VIAL IVP PRN ×2 (22:11)
[2021-02-07] MEDS ORDERED: Heparin 25,000UNIT/250ML 1/2NS 25,000 UNIT/250 ML IV.SOLN IVC SCH (22:15)
[2021-02-07] MEDS ORDERED: Remdesivir 200 MG in 0.9 % Sodium Chloride 100 ML IVPB ONE (22:30)
[2021-02-08] MEDS ORDERED: Potassium Chloride Elixir 20 MEQ/15 ML UDC PO ONE (01:15)
[2021-02-08] MEDS ORDERED: *HR* Enoxaparin 40 MG/0.4 ML SYRINGE SQ SCH (06:00)
[2021-02-08 06:13] LABS: Basophils % 0.1 %; Hematocrit 39.5 % (37.5-50.1); Hemoglobin 13.1 g/dL (12.9-16.9); Immature Granulocytes % 0.6 % (0-4); Lymphocytes # 1.7 K/mcL (0.6-4.6); Lymphocytes % 16.2 %; Mean Corpuscular HGB Conc 33.2 g/dL (31.6-35.5); Mean Corpuscular Hemoglobin 30.1 pg (28.0-33.3); Mean Corpuscular Volume 90.8 fL (83.0-100.0); Mean Platelet Volume 9.6 fL (9.4-12.4); Monocytes # 0.5 K/mcL (0.0-1.3); Monocytes % 5.3 %; Platelet Count 209 K/mcL (140-400); Red Blood Count 4.35 M/mcL (4.19-5.50); Red Cell Distribution Width 13.7 % (11.5-14.5); Segmented Neutrophils % 77.8 %; White Blood Count 10.2 K/mcL (4.3-11.1)
[2021-02-08 06:21] LABS: INR 1.4; Prothrombin Time 15.7 Seconds (9.4-12.1)
[2021-02-08 06:25] LABS: D-Dimer 1506 ng/mLFEU (0-500); Fibrinogen 727 mg/dL (169-393)
[2021-02-08 06:32] LABS: Alanine Aminotransferase 107 Units/L (7-52); Albumin/Globulin Ratio 0.8 (1.1-2.2); Alkaline Phosphatase 70 Units/L (34-104); Aspartate Amino Transferase 225 Units/L (13-39); BUN/Creatinine Ratio 29 (6-26); Bilirubin,Total 0.6 mg/dL (0.3-1.0); Blood Urea Nitrogen 29 mg/dL (8-23); Calcium 8.8 mg/dL (8.6-10.3); Carbon Dioxide 25 mEq/L (23-29); Chloride 112 mEq/L (98-107); Chol/HDL Ratio 6.3 (0-4.9); Cholesterol 114 mg/dL (< 200); Globulin 3.8 g/dL (2.4-3.5); Glucose 96 mg/dL (70-105); HDL Cholesterol 18 mg/dL (40-59); LDL Cholesterol,Calculated 66 mg/dL (< 100); Osmolality,Calculated 310 (280-300); Phosphorous 2.1 mg/dL (2.7-4.5); Potassium 3.6 mEq/L (3.5-5.1); Sodium 147 mEq/L (136-145); Total Protein 6.8 g/dL (6.4-8.9); Triglycerides 152 mg/dL (< 150); eGFR For African Americans > 60 (> 60); eGFR For Non-African Americans > 60 (> 60)
[2021-02-08 06:52] LABS: Alanine Aminotransferase 104 Units/L (7-52); Albumin 3.1 g/dL (3.5-5.7); Albumin/Globulin Ratio 0.8 (1.1-2.2); Alkaline Phosphatase 69 Units/L (34-104); Aspartate Amino Transferase 230 Units/L (13-39); Bilirubin,Direct 0.1 mg/dL (0.0-0.2); Bilirubin,Indirect 0.5 mg/dL (0.0-1.0); Bilirubin,Total 0.6 mg/dL (0.3-1.0); C-Reactive Protein > 300 mg/L (Less than 10); Ferritin 1270 ng/mL (20-250); Globulin 3.7 g/dL (2.4-3.5); Lactate Dehydrogenase 664 Units/L (140-271); Total Protein 6.8 g/dL (6.4-8.9)
[2021-02-08] MEDS ORDERED: Ipratropium Neb 0.5 MG NEBULIZER IH PRN (07:41)
[2021-02-08] MEDS: Dexamethasone Sodium Phos/PF 10 MG/ML VIAL IVP SCH (09:25)
[2021-02-08] MEDS: levoFLOXacin 750 MG/150 ML 750 MG/150 ML BAG IVPB SCH (12:47)
[2021-02-08] MEDS: Acetaminophen 325 MG TABLET PO PRN (17:34)
[2021-02-08] MEDS: Ketoconazole 2% CRM 15 GM TUBE TP SCH (17:35)
[2021-02-08] MEDS: Melatonin 3 MG TABLET PO SCH (22:26)
[2021-02-08] MEDS: traZODone 50 MG TABLET PO SCH (22:26)
[2021-02-08] MEDS: Remdesivir 100 MG in 0.9 % Sodium Chloride 100 ML IVPB SCH (22:26)
[2021-02-09 04:19] LABS: ABG Base Excess 2 mEq/L (-2 to 3); ABG HCO3 26 mEq/L (21-27); ABG Oxygen Saturation 96 % (95-98); ABG PCO2 36 mmHg (35-45); ABG PH 7.47 pH Units (7.32-7.45); ABG PO2 75 mmHg (85-104); ABG TCO2 27 mEq/L (20-26)
[2021-02-09] MEDS: *HR* Enoxaparin 40 MG/0.4 ML SYRINGE SQ SCH (05:21)
[2021-02-09 07:24] LABS: D-Dimer 1261 ng/mLFEU (0-500); Fibrinogen 705 mg/dL (169-393)
[2021-02-09 07:43] LABS: Albumin 3.1 g/dL (3.5-5.7); Albumin/Globulin Ratio 0.8 (1.1-2.2); Bilirubin,Direct 0.2 mg/dL (0.0-0.2); Bilirubin,Indirect 0.3 mg/dL (0.0-1.0); Bilirubin,Total 0.5 mg/dL (0.3-1.0); Globulin 3.8 g/dL (2.4-3.5); Total Protein 6.9 g/dL (6.4-8.9)
[2021-02-09 07:47] LABS: Alanine Aminotransferase 142 Units/L (7-52); Albumin 3.2 g/dL (3.5-5.7); Albumin/Globulin Ratio 0.9 (1.1-2.2); Alkaline Phosphatase 71 Units/L (34-104); Aspartate Amino Transferase 231 Units/L (13-39); BUN/Creatinine Ratio 38 (6-26); Bilirubin,Total 0.5 mg/dL (0.3-1.0); Blood Urea Nitrogen 46 mg/dL (8-23); Calcium 9.2 mg/dL (8.6-10.3); Carbon Dioxide 27 mEq/L (23-29); Chloride 112 mEq/L (98-107); Globulin 3.6 g/dL (2.4-3.5); Glucose 198 mg/dL (70-105); Lactate Dehydrogenase 625 Units/L (140-271); Magnesium 2.4 mg/dL (1.6-2.6); Osmolality,Calculated 323 (280-300); Phosphorous 2.9 mg/dL (2.7-4.5); Potassium 3.8 mEq/L (3.5-5.1); Sodium 148 mEq/L (136-145); Total Protein 6.8 g/dL (6.4-8.9); eGFR For African Americans > 60 (> 60); eGFR For Non-African Americans 58 (> 60)
[2021-02-09] MEDS ORDERED: ZINC ACETATE 50 MG PO SCH (09:00)
[2021-02-09] MEDS: Dexamethasone Sodium Phos/PF 10 MG/ML VIAL IVP SCH (09:23)
[2021-02-09] MEDS: Triamcinolone Acet 0.1% CRM 15 GM TUBE TP SCH (09:25)
[2021-02-09] MEDS: Cyanocobalamin (B-12) 1,000 MCG TABLET PO SCH (09:25)
[2021-02-09] MEDS: Magnesium Oxide 400 MG TABLET PO SCH (09:25)
[2021-02-09] MEDS: Cholecalciferol (D-3) 1,000 UNIT (25MCG) TABLET PO SCH (09:25)
[2021-02-09] MEDS: levoFLOXacin 750 MG/150 ML 750 MG/150 ML BAG IVPB SCH (09:26)
[2021-02-09] MEDS: Ascorbic Acid 500 MG TABLET PO SCH (09:28)
[2021-02-09] MEDS: Ketoconazole 2% CRM 15 GM TUBE TP SCH (18:25)
[2021-02-09] MEDS: Remdesivir 100 MG in 0.9 % Sodium Chloride 100 ML IVPB SCH (21:15)
[2021-02-09] MEDS: traZODone 50 MG TABLET PO SCH (21:15)
[2021-02-09] MEDS: Melatonin 3 MG TABLET PO SCH (21:16)
[2021-02-10 03:48] LABS: Basophils % 0.2 %; Hematocrit 40.3 % (37.5-50.1); Hemoglobin 12.8 g/dL (12.9-16.9); Lymphocytes % 8.1 %; Mean Corpuscular HGB Conc 31.8 g/dL (31.6-35.5); Mean Corpuscular Hemoglobin 29.4 pg (28.0-33.3); Mean Corpuscular Volume 92.6 fL (83.0-100.0); Mean Platelet Volume 10.5 fL (9.4-12.4); Monocytes # 0.8 K/mcL (0.0-1.3); Neutrophils # 10.8 K/mcL (1.6-8.9); Platelet Count 245 K/mcL (140-400); Red Blood Count 4.35 M/mcL (4.19-5.50); Red Cell Distribution Width 13.7 % (11.5-14.5); Segmented Neutrophils % 84.7 %; White Blood Count 12.7 K/mcL (4.3-11.1)
[2021-02-10 04:04] LABS: BUN/Creatinine Ratio 42 (6-26); Blood Urea Nitrogen 50 mg/dL (8-23); Calcium 9.4 mg/dL (8.6-10.3); Carbon Dioxide 27 mEq/L (23-29); Chloride 115 mEq/L (98-107); Glucose 185 mg/dL (70-105); Magnesium 2.2 mg/dL (1.6-2.6); Osmolality,Calculated 334 (280-300); Phosphorous 4.1 mg/dL (2.7-4.5); Potassium 3.6 mEq/L (3.5-5.1); Sodium 153 mEq/L (136-145); eGFR For African Americans > 60 (> 60); eGFR For Non-African Americans 59 (> 60)
[2021-02-10 04:07] LABS: Albumin 3.2 g/dL (3.5-5.7); Albumin/Globulin Ratio 0.9 (1.1-2.2); Bilirubin,Direct 0.1 mg/dL (0.0-0.2); Bilirubin,Indirect 0.3 mg/dL (0.0-1.0); Bilirubin,Total 0.4 mg/dL (0.3-1.0); Globulin 3.6 g/dL (2.4-3.5); Total Protein 6.8 g/dL (6.4-8.9)
[2021-02-10] MEDS: *HR* Enoxaparin 40 MG/0.4 ML SYRINGE SQ SCH (06:03)
[2021-02-10] MEDS: Cholecalciferol (D-3) 1,000 UNIT (25MCG) TABLET PO SCH (09:09)
[2021-02-10] MEDS: Cyanocobalamin (B-12) 1,000 MCG TABLET PO SCH (09:09)
[2021-02-10] MEDS: Magnesium Oxide 400 MG TABLET PO SCH (09:10)
[2021-02-10] MEDS: Ascorbic Acid 500 MG TABLET PO SCH (09:10)
[2021-02-10] MEDS: Dexamethasone Sodium Phos/PF 10 MG/ML VIAL IVP SCH (09:10)
[2021-02-10] MEDS: Triamcinolone Acet 0.1% CRM 15 GM TUBE TP SCH (09:11)
[2021-02-10] MEDS: D5% in Water 1,000 ML IVC SCH (11:30)
[2021-02-10] MEDS ORDERED: Ipratropium 1 PUFF INHALER IH PRN ×2 (15:07→16:31)
[2021-02-10] MEDS: Ipratropium 1 PUFF INHALER IH SCH ×2 (15:27→20:49)
[2021-02-10] MEDS ORDERED: Ipratropium/Albuterol Neb 3 ML IH SCH (16:00)
[2021-02-10] MEDS: Ketoconazole 2% CRM 15 GM TUBE TP SCH (17:39)
[2021-02-10 17:45] LABS: BUN/Creatinine Ratio 46 (6-26); Blood Urea Nitrogen 49 mg/dL (8-23); Calcium 9.3 mg/dL (8.6-10.3); Carbon Dioxide 27 mEq/L (23-29); Chloride 117 mEq/L (98-107); Glucose 216 mg/dL (70-105); Osmolality,Calculated 336 (280-300); Potassium 3.6 mEq/L (3.5-5.1); Sodium 153 mEq/L (136-145); eGFR For African Americans > 60 (> 60); eGFR For Non-African Americans > 60 (> 60)
[2021-02-10] MEDS: Melatonin 3 MG TABLET PO SCH (19:57)
[2021-02-10] MEDS: traZODone 50 MG TABLET PO SCH (19:57)
[2021-02-10] MEDS: Budesonide/Formoterol 160/4.5 1 PUFF INH IH SCH (20:49)
[2021-02-10] MEDS: Remdesivir 100 MG in 0.9 % Sodium Chloride 100 ML IVPB SCH (22:46)
[2021-02-11] MEDS: D5% in Water 1,000 ML IVC SCH (00:01)
[2021-02-11] MEDS: Ipratropium 1 PUFF INHALER IH SCH ×4 (03:48→22:26)
[2021-02-11] MEDS: *HR* Enoxaparin 40 MG/0.4 ML SYRINGE SQ SCH ×2 (05:00→05:12)
[2021-02-11] MEDS ORDERED: D5% in Water 1,000 ML IVC SCH (08:25)
[2021-02-11] MEDS: Cholecalciferol (D-3) 1,000 UNIT (25MCG) TABLET PO SCH (08:43)
[2021-02-11] MEDS: Ascorbic Acid 500 MG TABLET PO SCH (08:43)
[2021-02-11] MEDS: Magnesium Oxide 400 MG TABLET PO SCH (08:43)
[2021-02-11] MEDS: Cyanocobalamin (B-12) 1,000 MCG TABLET PO SCH (08:44)
[2021-02-11] MEDS: Aspirin 81 MG TAB.CHEW PO SCH (08:44)
[2021-02-11] MEDS: Triamcinolone Acet 0.1% CRM 15 GM TUBE TP SCH (08:50)
[2021-02-11] MEDS ORDERED: levoFLOXacin 750 MG TABLET PO SCH (09:00)
[2021-02-11] MEDS ORDERED: dexAMETHasone 4 MG TABLET PO SCH (09:00)
[2021-02-11] MEDS ORDERED: levoFLOXacin 750 MG/150 ML 750 MG/150 ML BAG IVPB SCH (09:00)
[2021-02-11 09:25] LABS: Alanine Aminotransferase 87 Units/L (7-52); Albumin 3.1 g/dL (3.5-5.7); Albumin/Globulin Ratio 0.9 (1.1-2.2); Alkaline Phosphatase 65 Units/L (34-104); Aspartate Amino Transferase 65 Units/L (13-39); Bilirubin,Indirect 0.4 mg/dL (0.0-1.0); Bilirubin,Total 0.4 mg/dL (0.3-1.0); Globulin 3.5 g/dL (2.4-3.5); Total Protein 6.6 g/dL (6.4-8.9)
[2021-02-11] MEDS ORDERED: Dexamethasone Sodium Phos/PF 10 MG/ML VIAL IVP ONE (09:34)
[2021-02-11] MEDS: Budesonide/Formoterol 160/4.5 1 PUFF INH IH SCH ×2 (11:31→22:26)
[2021-02-11 11:58] LABS: BUN/Creatinine Ratio 43 (6-26); Blood Urea Nitrogen 43 mg/dL (8-23); Calcium 8.6 mg/dL (8.6-10.3); Carbon Dioxide 17 mEq/L (23-29); Chloride 115 mEq/L (98-107); Glucose 195 mg/dL (70-105); Osmolality,Calculated 322 (280-300); Potassium 4.2 mEq/L (3.5-5.1); Sodium 148 mEq/L (136-145); eGFR For African Americans > 60 (> 60); eGFR For Non-African Americans > 60 (> 60)
[2021-02-11] MEDS ORDERED: *HR* Dextrose 50 % in Water (Vial) 50 ML VIAL IVP PRN (15:08)
[2021-02-11] MEDS ORDERED: Dextrose Gel 15 GM/37.5 ML TUBE PO PRN ×2 (15:08)
[2021-02-11] MEDS ORDERED: D5% in Water 1,000 ML IVC PRN (15:08)
[2021-02-11] MEDS: Insulin LISPRO 300 UNITS/3 ML VIAL SUBQ SCH ×2 (15:55→20:52)
[2021-02-11] MEDS: Acetaminophen 325 MG TABLET PO PRN (15:58)
[2021-02-11] MEDS: Ketoconazole 2% CRM 15 GM TUBE TP SCH (17:19)
[2021-02-11 17:57] LABS: Estimated Average Glucose 131 mg/dl; Hemoglobin A1C 6.2 %
[2021-02-11] MEDS: traZODone 50 MG TABLET PO SCH (21:06)
[2021-02-11] MEDS: Remdesivir 100 MG in 0.9 % Sodium Chloride 100 ML IVPB SCH (21:07)
[2021-02-11] MEDS: Melatonin 3 MG TABLET PO SCH (21:07)
[2021-02-12] MEDS: Ipratropium 1 PUFF INHALER IH SCH ×4 (04:16→21:29)
[2021-02-12] MEDS: *HR* Enoxaparin 40 MG/0.4 ML SYRINGE SQ SCH (05:31)
[2021-02-12 06:09] LABS: Hemoglobin 12.8 g/dL (12.9-16.9); Mean Corpuscular HGB Conc 31.2 g/dL (31.6-35.5); Mean Corpuscular Hemoglobin 29.2 pg (28.0-33.3); Mean Corpuscular Volume 93.6 fL (83.0-100.0); Mean Platelet Volume 11.2 fL (9.4-12.4); Platelet Count 293 K/mcL (140-400); Red Blood Count 4.38 M/mcL (4.19-5.50); Red Cell Distribution Width 14.1 % (11.5-14.5); White Blood Count 18.4 K/mcL (4.3-11.1)
[2021-02-12 06:24] LABS: Bilirubin,Direct 0.1 mg/dL (0.0-0.2); Bilirubin,Total 0.5 mg/dL (0.3-1.0)
[2021-02-12 06:25] LABS: Albumin 2.9 g/dL (3.5-5.7); Albumin/Globulin Ratio 0.7 (1.1-2.2); BUN/Creatinine Ratio 38 (6-26); Bilirubin,Indirect 0.4 mg/dL (0.0-1.0); Blood Urea Nitrogen 48 mg/dL (8-23); Calcium 9.2 mg/dL (8.6-10.3); Carbon Dioxide 30 mEq/L (23-29); Chloride 116 mEq/L (98-107); Globulin 3.9 g/dL (2.4-3.5); Glucose 161 mg/dL (70-105); Osmolality,Calculated 334 (280-300); Sodium 154 mEq/L (136-145); Total Protein 6.8 g/dL (6.4-8.9); eGFR For African Americans > 60 (> 60); eGFR For Non-African Americans 55 (> 60)
[2021-02-12] MEDS ORDERED: levoFLOXacin 750 MG TABLET PO SCH (09:00)
[2021-02-12] MEDS: Dexamethasone Sodium Phos/PF 10 MG/ML VIAL IVP SCH (09:01)
[2021-02-12] MEDS: Insulin LISPRO 300 UNITS/3 ML VIAL SUBQ SCH ×4 (09:01→19:22)
[2021-02-12] MEDS: D5% in Water 1,000 ML IVC SCH ×2 (09:01→17:05)
[2021-02-12] MEDS: Ascorbic Acid 500 MG TABLET PO SCH (09:02)
[2021-02-12] MEDS: Cyanocobalamin (B-12) 1,000 MCG TABLET PO SCH (09:02)
[2021-02-12] MEDS: Magnesium Oxide 400 MG TABLET PO SCH (09:02)
[2021-02-12] MEDS: Cholecalciferol (D-3) 1,000 UNIT (25MCG) TABLET PO SCH (09:02)
[2021-02-12] MEDS: Aspirin 81 MG TAB.CHEW PO SCH (09:03)
[2021-02-12] MEDS: Triamcinolone Acet 0.1% CRM 15 GM TUBE TP SCH (09:05)
[2021-02-12] MEDS: Budesonide/Formoterol 160/4.5 1 PUFF INH IH SCH ×2 (11:33→21:30)
[2021-02-12 14:53] LABS: BUN/Creatinine Ratio 38 (6-26); Blood Urea Nitrogen 49 mg/dL (8-23); Calcium 8.9 mg/dL (8.6-10.3); Carbon Dioxide 30 mEq/L (23-29); Chloride 116 mEq/L (98-107); Glucose 256 mg/dL (70-105); Osmolality,Calculated 336 (280-300); Potassium 4.1 mEq/L (3.5-5.1); Sodium 152 mEq/L (136-145); eGFR For African Americans > 60 (> 60); eGFR For Non-African Americans 53 (> 60)
[2021-02-12] MEDS: Ketoconazole 2% CRM 15 GM TUBE TP SCH (17:06)
[2021-02-12] MEDS: Piperacillin/Tazobactam 3.375 GM in 0.9 % Sodium Chloride Mini Bag 100 ML IVPB SCH (18:53)
[2021-02-12] MEDS: Melatonin 3 MG TABLET PO SCH (19:21)
[2021-02-12] MEDS: traZODone 50 MG TABLET PO SCH (19:22)
[2021-02-12] MEDS ORDERED: Acetaminophen IV 500 MG/50 ML BAG IVPB ONE (20:07)
[2021-02-13] MEDS: Piperacillin/Tazobactam 3.375 GM in 0.9 % Sodium Chloride Mini Bag 100 ML IVPB SCH ×3 (00:08→15:32)
[2021-02-13] MEDS ORDERED: Ketorolac 30 MG/ML VIAL IVP ONE (00:21)
[2021-02-13 01:10] LABS: Hematocrit 36.9 % (37.5-50.1); Hemoglobin 11.7 g/dL (12.9-16.9); Mean Corpuscular HGB Conc 31.7 g/dL (31.6-35.5); Mean Corpuscular Hemoglobin 29.8 pg (28.0-33.3); Mean Corpuscular Volume 94.1 fL (83.0-100.0); Mean Platelet Volume 11.2 fL (9.4-12.4); Platelet Count 272 K/mcL (140-400); Red Blood Count 3.92 M/mcL (4.19-5.50); Red Cell Distribution Width 14.1 % (11.5-14.5); White Blood Count 20.1 K/mcL (4.3-11.1)
[2021-02-13] MEDS: D5% in Water 1,000 ML IVC SCH ×3 (01:36→15:31)
[2021-02-13 01:39] LABS: Albumin 2.5 g/dL (3.5-5.7); Albumin/Globulin Ratio 0.7 (1.1-2.2); Bilirubin,Direct 0.2 mg/dL (0.0-0.2); Bilirubin,Indirect 0.4 mg/dL (0.0-1.0); Bilirubin,Total 0.6 mg/dL (0.3-1.0); Globulin 3.5 g/dL (2.4-3.5)
[2021-02-13 01:40] LABS: BUN/Creatinine Ratio 41 (6-26); Blood Urea Nitrogen 47 mg/dL (8-23); Calcium 8.5 mg/dL (8.6-10.3); Carbon Dioxide 26 mEq/L (23-29); Chloride 113 mEq/L (98-107); Glucose 272 mg/dL (70-105); Osmolality,Calculated 330 (280-300); Potassium 3.7 mEq/L (3.5-5.1); Sodium 149 mEq/L (136-145); eGFR For African Americans > 60 (> 60); eGFR For Non-African Americans 60 (> 60)
[2021-02-13] MEDS: Ipratropium 1 PUFF INHALER IH SCH ×4 (03:48→21:48)
[2021-02-13] MEDS: *HR* Enoxaparin 40 MG/0.4 ML SYRINGE SQ SCH (05:00)
[2021-02-13] MEDS: Triamcinolone Acet 0.1% CRM 15 GM TUBE TP SCH (09:00)
[2021-02-13] MEDS: Budesonide/Formoterol 160/4.5 1 PUFF INH IH SCH ×2 (09:45→21:49)
[2021-02-13] MEDS: Dexamethasone Sodium Phos/PF 10 MG/ML VIAL IVP SCH (10:01)
[2021-02-13] MEDS: Insulin LISPRO 300 UNITS/3 ML VIAL SUBQ SCH ×3 (10:05→18:27)
[2021-02-13 10:30] LABS: BUN/Creatinine Ratio 45 (6-26); Blood Urea Nitrogen 58 mg/dL (8-23); Calcium 8.5 mg/dL (8.6-10.3); Carbon Dioxide 29 mEq/L (23-29); Chloride 113 mEq/L (98-107); Glucose 266 mg/dL (70-105); Osmolality,Calculated 333 (280-300); Potassium 3.8 mEq/L (3.5-5.1); Sodium 149 mEq/L (136-145); eGFR For African Americans > 60 (> 60); eGFR For Non-African Americans 53 (> 60)
[2021-02-13] MEDS: Magnesium Oxide 400 MG TABLET PO SCH (15:46)
[2021-02-13] MEDS: Ascorbic Acid 500 MG TABLET PO SCH (15:46)
[2021-02-13] MEDS: Cholecalciferol (D-3) 1,000 UNIT (25MCG) TABLET PO SCH (15:46)
[2021-02-13] MEDS: Aspirin 81 MG TAB.CHEW PO SCH (15:46)
[2021-02-13] MEDS: Cyanocobalamin (B-12) 1,000 MCG TABLET PO SCH (15:46)
[2021-02-13] MEDS: Ketoconazole 2% CRM 15 GM TUBE TP SCH ×2 (15:48→18:34)
[2021-02-14] MEDS: Melatonin 3 MG TABLET PO SCH ×2 (00:20→23:00)
[2021-02-14] MEDS: traZODone 50 MG TABLET PO SCH ×2 (00:20→23:00)
[2021-02-14] MEDS: Insulin LISPRO 300 UNITS/3 ML VIAL SUBQ SCH ×5 (00:20→23:00)
[2021-02-14] MEDS: Piperacillin/Tazobactam 3.375 GM in 0.9 % Sodium Chloride Mini Bag 100 ML IVPB SCH ×3 (00:58→15:23)
[2021-02-14] MEDS: Ipratropium 1 PUFF INHALER IH SCH ×4 (03:51→21:15)
[2021-02-14] MEDS: D5% in Water 1,000 ML IVC SCH ×2 (05:27→19:46)
[2021-02-14] MEDS: *HR* Enoxaparin 40 MG/0.4 ML SYRINGE SQ SCH (05:27)
[2021-02-14] MEDS: Aspirin 81 MG TAB.CHEW PO SCH (07:41)
[2021-02-14] MEDS: Ascorbic Acid 500 MG TABLET PO SCH (07:42)
[2021-02-14] MEDS: Cholecalciferol (D-3) 1,000 UNIT (25MCG) TABLET PO SCH (07:42)
[2021-02-14] MEDS: Magnesium Oxide 400 MG TABLET PO SCH (07:42)
[2021-02-14] MEDS: Cyanocobalamin (B-12) 1,000 MCG TABLET PO SCH (07:42)
[2021-02-14 07:52] LABS: Hematocrit 35.3 % (37.5-50.1); Hemoglobin 11.2 g/dL (12.9-16.9); Mean Corpuscular HGB Conc 31.7 g/dL (31.6-35.5); Mean Corpuscular Hemoglobin 29.5 pg (28.0-33.3); Mean Corpuscular Volume 92.9 fL (83.0-100.0); Mean Platelet Volume 11.4 fL (9.4-12.4); Platelet Count 272 K/mcL (140-400); Red Cell Distribution Width 13.8 % (11.5-14.5); White Blood Count 16.2 K/mcL (4.3-11.1)
[2021-02-14] MEDS: Dexamethasone Sodium Phos/PF 10 MG/ML VIAL IVP SCH (08:03)
[2021-02-14 08:10] LABS: BUN/Creatinine Ratio 48 (6-26); Blood Urea Nitrogen 47 mg/dL (8-23); Carbon Dioxide 29 mEq/L (23-29); Chloride 112 mEq/L (98-107); Glucose 281 mg/dL (70-105); Osmolality,Calculated 326 (280-300); Potassium 4.2 mEq/L (3.5-5.1); Sodium 147 mEq/L (136-145); eGFR For African Americans > 60 (> 60); eGFR For Non-African Americans > 60 (> 60)
[2021-02-14 08:11] LABS: Albumin 2.4 g/dL (3.5-5.7); Albumin/Globulin Ratio 0.7 (1.1-2.2); Bilirubin,Indirect 0.5 mg/dL (0.0-1.0); Bilirubin,Total 0.5 mg/dL (0.3-1.0); Globulin 3.6 g/dL (2.4-3.5)
[2021-02-14] MEDS: Triamcinolone Acet 0.1% CRM 15 GM TUBE TP SCH (08:14)
[2021-02-14] MEDS ORDERED: levoFLOXacin 750 MG TABLET PO SCH ×2 (09:00)
[2021-02-14] MEDS: Budesonide/Formoterol 160/4.5 1 PUFF INH IH SCH ×2 (10:04→21:15)
[2021-02-14 10:58] LABS: Calcium 8.4 mg/dL (8.6-10.3)
[2021-02-15] MEDS: Piperacillin/Tazobactam 3.375 GM in 0.9 % Sodium Chloride Mini Bag 100 ML IVPB SCH ×4 (01:00→23:49)
[2021-02-15] MEDS: Ipratropium 1 PUFF INHALER IH SCH ×4 (04:35→20:15)
[2021-02-15] MEDS: *HR* Enoxaparin 40 MG/0.4 ML SYRINGE SQ SCH (05:36)
[2021-02-15 07:16] LABS: Alanine Aminotransferase 57 Units/L (7-52); Albumin 2.4 g/dL (3.5-5.7); Albumin/Globulin Ratio 0.6 (1.1-2.2); Alkaline Phosphatase 54 Units/L (34-104); Aspartate Amino Transferase 34 Units/L (13-39); BUN/Creatinine Ratio 49 (6-26); Bilirubin,Direct 0.1 mg/dL (0.0-0.2); Bilirubin,Indirect 0.3 mg/dL (0.0-1.0); Bilirubin,Total 0.4 mg/dL (0.3-1.0); Blood Urea Nitrogen 41 mg/dL (8-23); Calcium 8.5 mg/dL (8.6-10.3); Carbon Dioxide 28 mEq/L (23-29); Chloride 111 mEq/L (98-107); Globulin 3.7 g/dL (2.4-3.5); Glucose 266 mg/dL (70-105); Osmolality,Calculated 319 (280-300); Potassium 4.1 mEq/L (3.5-5.1); Sodium 145 mEq/L (136-145); Total Protein 6.1 g/dL (6.4-8.9); eGFR For African Americans > 60 (> 60); eGFR For Non-African Americans > 60 (> 60)
[2021-02-15] MEDS: Cyanocobalamin (B-12) 1,000 MCG TABLET PO SCH (08:10)
[2021-02-15] MEDS: Aspirin 81 MG TAB.CHEW PO SCH (08:10)
[2021-02-15] MEDS: Magnesium Oxide 400 MG TABLET PO SCH (08:10)
[2021-02-15] MEDS: Ascorbic Acid 500 MG TABLET PO SCH (08:11)
[2021-02-15] MEDS: Cholecalciferol (D-3) 1,000 UNIT (25MCG) TABLET PO SCH (08:11)
[2021-02-15] MEDS: D5% in Water 1,000 ML IVC SCH (09:28)
[2021-02-15] MEDS: Dexamethasone Sodium Phos/PF 10 MG/ML VIAL IVP SCH (09:36)
[2021-02-15] MEDS: Pantoprazole 40 MG VIAL IVP SCH (09:38)
[2021-02-15] MEDS: Insulin LISPRO 300 UNITS/3 ML VIAL SUBQ SCH ×4 (09:46→23:56)
[2021-02-15] MEDS: Triamcinolone Acet 0.1% CRM 15 GM TUBE TP SCH (09:49)
[2021-02-15] MEDS: Budesonide/Formoterol 160/4.5 1 PUFF INH IH SCH ×2 (10:53→20:15)
[2021-02-15 12:39] LABS: Hematocrit 36.4 % (37.5-50.1); Hemoglobin 11.5 g/dL (12.9-16.9); Mean Corpuscular HGB Conc 31.6 g/dL (31.6-35.5); Mean Corpuscular Hemoglobin 29.7 pg (28.0-33.3); Mean Corpuscular Volume 94.1 fL (83.0-100.0); Platelet Count 285 K/mcL (140-400); Red Blood Count 3.87 M/mcL (4.19-5.50); Red Cell Distribution Width 13.6 % (11.5-14.5); White Blood Count 15.9 K/mcL (4.3-11.1)
[2021-02-15] MEDS ORDERED: Insulin DETEMIR 100 UNIT/ML X5UNITS SUBQ SCH (14:45)
[2021-02-15] MEDS: Ketoconazole 2% CRM 15 GM TUBE TP SCH (22:04)
[2021-02-15] MEDS: Melatonin 3 MG TABLET PO SCH (22:05)
[2021-02-15] MEDS: traZODone 50 MG TABLET PO SCH (22:05)
[2021-02-16] MEDS: Ipratropium 1 PUFF INHALER IH SCH ×4 (04:05→23:36)
[2021-02-16] MEDS: D5% in Water 1,000 ML IVC SCH ×2 (05:11→18:48)
[2021-02-16] MEDS: *HR* Enoxaparin 40 MG/0.4 ML SYRINGE SQ SCH (05:11)
[2021-02-16] MEDS: Insulin LISPRO 300 UNITS/3 ML VIAL SUBQ SCH ×4 (05:12→23:12)
[2021-02-16 05:15] LABS: Hemoglobin 11.7 g/dL (12.9-16.9); Mean Corpuscular HGB Conc 31.6 g/dL (31.6-35.5); Mean Corpuscular Hemoglobin 29.3 pg (28.0-33.3); Mean Corpuscular Volume 92.5 fL (83.0-100.0); Mean Platelet Volume 11.7 fL (9.4-12.4); Platelet Count 297 K/mcL (140-400); Red Cell Distribution Width 13.2 % (11.5-14.5)
[2021-02-16 05:31] LABS: BUN/Creatinine Ratio 43 (6-26); Blood Urea Nitrogen 35 mg/dL (8-23); Calcium 8.3 mg/dL (8.6-10.3); Carbon Dioxide 29 mEq/L (23-29); Chloride 113 mEq/L (98-107); Glucose 121 mg/dL (70-105); Osmolality,Calculated 311 (280-300); Potassium 4.2 mEq/L (3.5-5.1); Sodium 146 mEq/L (136-145); eGFR For African Americans > 60 (> 60); eGFR For Non-African Americans > 60 (> 60)
[2021-02-16] MEDS: Cholecalciferol (D-3) 1,000 UNIT (25MCG) TABLET PO SCH (08:06)
[2021-02-16] MEDS: Pantoprazole 40 MG VIAL IVP SCH (08:06)
[2021-02-16] MEDS: Piperacillin/Tazobactam 3.375 GM in 0.9 % Sodium Chloride Mini Bag 100 ML IVPB SCH ×2 (08:06→15:17)
[2021-02-16] MEDS: Ascorbic Acid 500 MG TABLET PO SCH (08:07)
[2021-02-16] MEDS: Aspirin 81 MG TAB.CHEW PO SCH (08:07)
[2021-02-16] MEDS: Cyanocobalamin (B-12) 1,000 MCG TABLET PO SCH (08:07)
[2021-02-16] MEDS: Magnesium Oxide 400 MG TABLET PO SCH (08:07)
[2021-02-16] MEDS: Insulin DETEMIR 100 UNIT/ML X5UNITS SUBQ SCH (08:21)
[2021-02-16] MEDS: Triamcinolone Acet 0.1% CRM 15 GM TUBE TP SCH (08:26)
[2021-02-16] MEDS: Budesonide/Formoterol 160/4.5 1 PUFF INH IH SCH ×2 (10:45→23:36)
[2021-02-16] MEDS: Ketoconazole 2% CRM 15 GM TUBE TP SCH (18:41)
[2021-02-16] MEDS: traZODone 50 MG TABLET PO SCH (20:38)
[2021-02-16] MEDS: Melatonin 3 MG TABLET PO SCH (20:38)
[2021-02-17] MEDS: Piperacillin/Tazobactam 3.375 GM in 0.9 % Sodium Chloride Mini Bag 100 ML IVPB SCH ×2 (01:28→07:49)
[2021-02-17 03:33] LABS: Hemoglobin 10.9 g/dL (12.9-16.9); Mean Corpuscular HGB Conc 32.1 g/dL (31.6-35.5); Mean Corpuscular Hemoglobin 29.6 pg (28.0-33.3); Mean Corpuscular Volume 92.4 fL (83.0-100.0); Mean Platelet Volume 11.8 fL (9.4-12.4); Platelet Count 247 K/mcL (140-400); Red Blood Count 3.68 M/mcL (4.19-5.50); Red Cell Distribution Width 13.2 % (11.5-14.5); White Blood Count 12.9 K/mcL (4.3-11.1)
[2021-02-17 03:53] LABS: BUN/Creatinine Ratio 47 (6-26); Blood Urea Nitrogen 33 mg/dL (8-23); Calcium 8.1 mg/dL (8.6-10.3); Carbon Dioxide 25 mEq/L (23-29); Chloride 108 mEq/L (98-107); Glucose 228 mg/dL (70-105); Magnesium 2.2 mg/dL (1.6-2.6); Osmolality,Calculated 304 (280-300); Phosphorous 2.9 mg/dL (2.7-4.5); Potassium 4.2 mEq/L (3.5-5.1); Sodium 140 mEq/L (136-145); eGFR For African Americans > 60 (> 60); eGFR For Non-African Americans > 60 (> 60)
[2021-02-17] MEDS: Ipratropium 1 PUFF INHALER IH SCH ×4 (03:57→21:54)
[2021-02-17] MEDS: *HR* Enoxaparin 40 MG/0.4 ML SYRINGE SQ SCH (05:42)
[2021-02-17] MEDS: Insulin DETEMIR 100 UNIT/ML X5UNITS SUBQ SCH (07:50)
[2021-02-17] MEDS: Pantoprazole 40 MG VIAL IVP SCH (07:50)
[2021-02-17] MEDS: Aspirin 81 MG TAB.CHEW PO SCH (07:51)
[2021-02-17] MEDS: Cholecalciferol (D-3) 1,000 UNIT (25MCG) TABLET PO SCH (07:51)
[2021-02-17] MEDS: Ascorbic Acid 500 MG TABLET PO SCH (07:51)
[2021-02-17] MEDS: Magnesium Oxide 400 MG TABLET PO SCH (07:51)
[2021-02-17] MEDS: Triamcinolone Acet 0.1% CRM 15 GM TUBE TP SCH (07:52)
[2021-02-17] MEDS: Cyanocobalamin (B-12) 1,000 MCG TABLET PO SCH (07:52)
[2021-02-17] MEDS: Insulin LISPRO 300 UNITS/3 ML VIAL SUBQ SCH ×3 (07:57→17:12)
[2021-02-17] MEDS: D5% in Water 1,000 ML IVC SCH (09:35)
[2021-02-17] MEDS: Budesonide/Formoterol 160/4.5 1 PUFF INH IH SCH ×2 (10:48→21:54)
[2021-02-17] MEDS ORDERED: E-Z-HD (BARIUM SULF) SUSPENSION PO ONE (15:33)
[2021-02-17] MEDS ORDERED: E-Z-PAQUE (BARIUM SULF) SUSP 1 BOTTLE PO ONE (15:33)
[2021-02-17] MEDS: Ketoconazole 2% CRM 15 GM TUBE TP SCH (16:19)
[2021-02-17] MEDS: traZODone 50 MG TABLET PO SCH (21:44)
[2021-02-17] MEDS: Melatonin 3 MG TABLET PO SCH (21:44)
[2021-02-18] MEDS: Ipratropium 1 PUFF INHALER IH SCH ×4 (03:21→21:31)
[2021-02-18] MEDS: *HR* Enoxaparin 40 MG/0.4 ML SYRINGE SQ SCH (05:31)
[2021-02-18 06:43] LABS: BUN/Creatinine Ratio 42 (6-26); Blood Urea Nitrogen 30 mg/dL (8-23); Calcium 8.3 mg/dL (8.6-10.3); Carbon Dioxide 27 mEq/L (23-29); Chloride 108 mEq/L (98-107); Glucose 92 mg/dL (70-105); Osmolality,Calculated 296 (280-300); Potassium 4.3 mEq/L (3.5-5.1); Sodium 140 mEq/L (136-145); eGFR For African Americans > 60 (> 60); eGFR For Non-African Americans > 60 (> 60)
[2021-02-18] MEDS: Aspirin 81 MG TAB.CHEW PO SCH (08:36)
[2021-02-18] MEDS: Insulin LISPRO 300 UNITS/3 ML VIAL SUBQ SCH ×3 (08:36→17:04)
[2021-02-18] MEDS: Cholecalciferol (D-3) 1,000 UNIT (25MCG) TABLET PO SCH (08:38)
[2021-02-18] MEDS: Magnesium Oxide 400 MG TABLET PO SCH (08:39)
[2021-02-18] MEDS: Cyanocobalamin (B-12) 1,000 MCG TABLET PO SCH (08:39)
[2021-02-18] MEDS: Ascorbic Acid 500 MG TABLET PO SCH (08:39)
[2021-02-18] MEDS: Triamcinolone Acet 0.1% CRM 15 GM TUBE TP SCH (08:39)
[2021-02-18] MEDS: Budesonide/Formoterol 160/4.5 1 PUFF INH IH SCH ×2 (09:34→21:33)
[2021-02-18] MEDS: Ketoconazole 2% CRM 15 GM TUBE TP SCH (17:05)
[2021-02-18] MEDS: Melatonin 3 MG TABLET PO SCH (20:19)
[2021-02-18] MEDS: traZODone 50 MG TABLET PO SCH (20:19)
[2021-02-19] MEDS: Ipratropium 1 PUFF INHALER IH SCH ×4 (03:36→22:44)
[2021-02-19] MEDS: *HR* Enoxaparin 40 MG/0.4 ML SYRINGE SQ SCH (05:28)
[2021-02-19 08:42] LABS: BUN/Creatinine Ratio 42 (6-26); Blood Urea Nitrogen 31 mg/dL (8-23); Calcium 8.4 mg/dL (8.6-10.3); Carbon Dioxide 24 mEq/L (23-29); Chloride 108 mEq/L (98-107); Glucose 96 mg/dL (70-105); Osmolality,Calculated 300 (280-300); Potassium 4.2 mEq/L (3.5-5.1); Sodium 142 mEq/L (136-145); eGFR For African Americans > 60 (> 60); eGFR For Non-African Americans > 60 (> 60)
[2021-02-19] MEDS: Insulin LISPRO 300 UNITS/3 ML VIAL SUBQ SCH ×3 (09:19→17:02)
[2021-02-19] MEDS: Aspirin 81 MG TAB.CHEW PO SCH (09:20)
[2021-02-19] MEDS: Magnesium Oxide 400 MG TABLET PO SCH (09:21)
[2021-02-19] MEDS: Cholecalciferol (D-3) 1,000 UNIT (25MCG) TABLET PO SCH (09:21)
[2021-02-19] MEDS: Ascorbic Acid 500 MG TABLET PO SCH (09:21)
[2021-02-19] MEDS: Cyanocobalamin (B-12) 1,000 MCG TABLET PO SCH (09:21)
[2021-02-19] MEDS: Triamcinolone Acet 0.1% CRM 15 GM TUBE TP SCH (09:29)
[2021-02-19] MEDS: Budesonide/Formoterol 160/4.5 1 PUFF INH IH SCH ×2 (11:18→22:45)
[2021-02-19] MEDS: Ketoconazole 2% CRM 15 GM TUBE TP SCH (17:03)
[2021-02-19] MEDS: Melatonin 3 MG TABLET PO SCH (21:40)
[2021-02-19] MEDS: traZODone 50 MG TABLET PO SCH (21:40)
[2021-02-20] MEDS: Ipratropium 1 PUFF INHALER IH SCH ×2 (04:09→11:40)
[2021-02-20] MEDS: *HR* Enoxaparin 40 MG/0.4 ML SYRINGE SQ SCH (06:05)
[2021-02-20] MEDS: D5% in Water 1,000 ML IVC SCH (07:13)
[2021-02-20] MEDS: Insulin LISPRO 300 UNITS/3 ML VIAL SUBQ SCH ×3 (07:48→16:17)
[2021-02-20] MEDS: Aspirin 81 MG TAB.CHEW PO SCH (08:11)
[2021-02-20] MEDS: Cholecalciferol (D-3) 1,000 UNIT (25MCG) TABLET PO SCH (08:11)
[2021-02-20] MEDS: Magnesium Oxide 400 MG TABLET PO SCH (08:11)
[2021-02-20] MEDS: Cyanocobalamin (B-12) 1,000 MCG TABLET PO SCH (08:11)
[2021-02-20] MEDS: Triamcinolone Acet 0.1% CRM 15 GM TUBE TP SCH (08:12)
[2021-02-20] MEDS: Ascorbic Acid 500 MG TABLET PO SCH (08:12)
[2021-02-20] MEDS: Budesonide/Formoterol 160/4.5 1 PUFF INH IH SCH ×2 (11:40→19:33)
[2021-02-20] MEDS ORDERED: Ipratropium 1 PUFF INHALER IH PRN (15:28)
[2021-02-20] MEDS: Ketoconazole 2% CRM 15 GM TUBE TP SCH (18:47)
[2021-02-20] MEDS: traZODone 50 MG TABLET PO SCH (23:25)
[2021-02-20] MEDS: Melatonin 3 MG TABLET PO SCH (23:25)
[2021-02-21] MEDS: *HR* Enoxaparin 40 MG/0.4 ML SYRINGE SQ SCH (06:13)
[2021-02-21 06:56] LABS: Hematocrit 40.8 % (37.5-50.1); Hemoglobin 13.1 g/dL (12.9-16.9); Mean Corpuscular HGB Conc 32.1 g/dL (31.6-35.5); Mean Corpuscular Hemoglobin 29.7 pg (28.0-33.3); Mean Corpuscular Volume 92.5 fL (83.0-100.0); Mean Platelet Volume 11.2 fL (9.4-12.4); Platelet Count 317 K/mcL (140-400); Red Blood Count 4.41 M/mcL (4.19-5.50); Red Cell Distribution Width 13.5 % (11.5-14.5); White Blood Count 17.8 K/mcL (4.3-11.1)
[2021-02-21 07:16] LABS: BUN/Creatinine Ratio 46 (6-26); Blood Urea Nitrogen 39 mg/dL (8-23); Calcium 9.1 mg/dL (8.6-10.3); Carbon Dioxide 30 mEq/L (23-29); Chloride 109 mEq/L (98-107); Glucose 108 mg/dL (70-105); Osmolality,Calculated 310 (280-300); Potassium 4.4 mEq/L (3.5-5.1); Sodium 145 mEq/L (136-145); eGFR For African Americans > 60 (> 60); eGFR For Non-African Americans > 60 (> 60)
[2021-02-21] MEDS: Cyanocobalamin (B-12) 1,000 MCG TABLET PO SCH (08:25)
[2021-02-21] MEDS: Ascorbic Acid 500 MG TABLET PO SCH (08:25)
[2021-02-21] MEDS: Cholecalciferol (D-3) 1,000 UNIT (25MCG) TABLET PO SCH (08:26)
[2021-02-21] MEDS: Magnesium Oxide 400 MG TABLET PO SCH (08:26)
[2021-02-21] MEDS: Aspirin 81 MG TAB.CHEW PO SCH (08:26)
[2021-02-21] MEDS: Triamcinolone Acet 0.1% CRM 15 GM TUBE TP SCH (08:27)
[2021-02-21] MEDS: Insulin LISPRO 300 UNITS/3 ML VIAL SUBQ SCH ×3 (08:28→18:21)
[2021-02-21] MEDS: Budesonide/Formoterol 160/4.5 1 PUFF INH IH SCH ×2 (11:58→19:50)
[2021-02-21] MEDS: D5% in 0.45% NACL 1,000 ML IVC SCH ×2 (13:30→23:31)
[2021-02-21] MEDS: Ampicillin/Sulbactam 3,000 MG in 0.9 % Sodium Chloride Mini Bag 100 ML IVPB SCH ×3 (13:30→23:29)
[2021-02-21] MEDS: Ketoconazole 2% CRM 15 GM TUBE TP SCH (18:28)
[2021-02-21] MEDS: traZODone 50 MG TABLET PO SCH (21:25)
[2021-02-21] MEDS: Melatonin 3 MG TABLET PO SCH (21:25)
[2021-02-22 01:28] LABS: Basophils % 0.2 %; Hematocrit 40.5 % (37.5-50.1); Hemoglobin 12.7 g/dL (12.9-16.9); Lymphocytes # 0.6 K/mcL (0.6-4.6); Lymphocytes % 3.7 %; Mean Corpuscular HGB Conc 31.4 g/dL (31.6-35.5); Mean Corpuscular Hemoglobin 29.8 pg (28.0-33.3); Mean Corpuscular Volume 95.1 fL (83.0-100.0); Mean Platelet Volume 11.2 fL (9.4-12.4); Monocytes # 1.1 K/mcL (0.0-1.3); Monocytes % 6.5 %; Neutrophils # 14.5 K/mcL (1.6-8.9); Platelet Count 265 K/mcL (140-400); Red Blood Count 4.26 M/mcL (4.19-5.50); Red Cell Distribution Width 13.9 % (11.5-14.5); Segmented Neutrophils % 88.6 %; White Blood Count 16.4 K/mcL (4.3-11.1)
[2021-02-22 01:56] LABS: BUN/Creatinine Ratio 40 (6-26); Blood Urea Nitrogen 34 mg/dL (8-23); Calcium 8.4 mg/dL (8.6-10.3); Carbon Dioxide 27 mEq/L (23-29); Chloride 112 mEq/L (98-107); Glucose 144 mg/dL (70-105); Magnesium 2.3 mg/dL (1.6-2.6); Osmolality,Calculated 318 (280-300); Phosphorous 2.7 mg/dL (2.7-4.5); Sodium 149 mEq/L (136-145); eGFR For African Americans > 60 (> 60); eGFR For Non-African Americans > 60 (> 60)
[2021-02-22] MEDS: Ampicillin/Sulbactam 3,000 MG in 0.9 % Sodium Chloride Mini Bag 100 ML IVPB SCH ×4 (04:49→23:40)
[2021-02-22] MEDS: *HR* Enoxaparin 40 MG/0.4 ML SYRINGE SQ SCH (04:51)
[2021-02-22] MEDS: D5% in Water 1,000 ML IVC SCH ×2 (06:22→16:40)
[2021-02-22] MEDS: Insulin LISPRO 300 UNITS/3 ML VIAL SUBQ SCH ×3 (08:02→17:12)
[2021-02-22] MEDS: Budesonide/Formoterol 160/4.5 1 PUFF INH IH SCH (08:11)
[2021-02-22] MEDS: Aspirin 81 MG TAB.CHEW PO SCH (09:34)
[2021-02-22] MEDS: Cholecalciferol (D-3) 1,000 UNIT (25MCG) TABLET PO SCH (09:36)
[2021-02-22] MEDS: Triamcinolone Acet 0.1% CRM 15 GM TUBE TP SCH (09:36)
[2021-02-22] MEDS: Cyanocobalamin (B-12) 1,000 MCG TABLET PO SCH (09:36)
[2021-02-22] MEDS: Ascorbic Acid 500 MG TABLET PO SCH (09:36)
[2021-02-22] MEDS: Magnesium Oxide 400 MG TABLET PO SCH (09:36)
[2021-02-22] MEDS: Ketoconazole 2% CRM 15 GM TUBE TP SCH (17:11)
[2021-02-22] MEDS: traZODone 50 MG TABLET PO SCH (19:02)
[2021-02-22] MEDS: Melatonin 3 MG TABLET PO SCH (19:03)
[2021-02-23] MEDS: Ampicillin/Sulbactam 3,000 MG in 0.9 % Sodium Chloride Mini Bag 100 ML IVPB SCH ×3 (06:05→19:53)
[2021-02-23] MEDS: *HR* Enoxaparin 40 MG/0.4 ML SYRINGE SQ SCH (06:06)
[2021-02-23 07:47] LABS: Hematocrit 39.4 % (37.5-50.1); Hemoglobin 12.1 g/dL (12.9-16.9); Mean Corpuscular HGB Conc 30.7 g/dL (31.6-35.5); Mean Corpuscular Hemoglobin 29.1 pg (28.0-33.3); Mean Corpuscular Volume 94.7 fL (83.0-100.0); Platelet Count 190 K/mcL (140-400); Red Blood Count 4.16 M/mcL (4.19-5.50); White Blood Count 14.3 K/mcL (4.3-11.1)
[2021-02-23 08:09] LABS: BUN/Creatinine Ratio 33 (6-26); Blood Urea Nitrogen 25 mg/dL (8-23); Calcium 8.3 mg/dL (8.6-10.3); Carbon Dioxide 33 mEq/L (23-29); Chloride 107 mEq/L (98-107); Glucose 102 mg/dL (70-105); Osmolality,Calculated 303 (280-300); Potassium 3.7 mEq/L (3.5-5.1); Sodium 144 mEq/L (136-145); eGFR For African Americans > 60 (> 60); eGFR For Non-African Americans > 60 (> 60)
[2021-02-23] MEDS: Insulin LISPRO 300 UNITS/3 ML VIAL SUBQ SCH ×3 (09:21→16:21)
[2021-02-23] MEDS: Ascorbic Acid 500 MG TABLET PO SCH (09:27)
[2021-02-23] MEDS: Cyanocobalamin (B-12) 1,000 MCG TABLET PO SCH (09:27)
[2021-02-23] MEDS: Magnesium Oxide 400 MG TABLET PO SCH (09:27)
[2021-02-23] MEDS: Cholecalciferol (D-3) 1,000 UNIT (25MCG) TABLET PO SCH (09:28)
[2021-02-23] MEDS: Aspirin 81 MG TAB.CHEW PO SCH (09:28)
[2021-02-23] MEDS: Triamcinolone Acet 0.1% CRM 15 GM TUBE TP SCH (09:52)
[2021-02-23] MEDS: Melatonin 3 MG TABLET PO SCH (19:45)
[2021-02-23] MEDS: traZODone 50 MG TABLET PO SCH (19:45)
[2021-02-23] MEDS: Ketoconazole 2% CRM 15 GM TUBE TP SCH (19:54)
[2021-02-24] MEDS: Ampicillin/Sulbactam 3,000 MG in 0.9 % Sodium Chloride Mini Bag 100 ML IVPB SCH ×4 (03:31→18:46)
[2021-02-24] MEDS: *HR* Enoxaparin 40 MG/0.4 ML SYRINGE SQ SCH (04:38)
[2021-02-24 05:35] LABS: Hematocrit 37.9 % (37.5-50.1); Hemoglobin 12.2 g/dL (12.9-16.9); Mean Corpuscular HGB Conc 32.2 g/dL (31.6-35.5); Mean Corpuscular Volume 93.3 fL (83.0-100.0); Mean Platelet Volume 11.3 fL (9.4-12.4); Platelet Count 173 K/mcL (140-400); Red Blood Count 4.06 M/mcL (4.19-5.50); Red Cell Distribution Width 13.8 % (11.5-14.5); White Blood Count 8.6 K/mcL (4.3-11.1)
[2021-02-24 05:52] LABS: BUN/Creatinine Ratio 38 (6-26); Blood Urea Nitrogen 27 mg/dL (8-23); Calcium 8.4 mg/dL (8.6-10.3); Carbon Dioxide 29 mEq/L (23-29); Chloride 112 mEq/L (98-107); Glucose 89 mg/dL (70-105); Osmolality,Calculated 313 (280-300); Sodium 149 mEq/L (136-145); eGFR For African Americans > 60 (> 60); eGFR For Non-African Americans > 60 (> 60)
[2021-02-24] MEDS: Insulin LISPRO 300 UNITS/3 ML VIAL SUBQ SCH ×3 (07:25→16:42)
[2021-02-24] MEDS: Aspirin 81 MG TAB.CHEW PO SCH (09:19)
[2021-02-24] MEDS: Cholecalciferol (D-3) 1,000 UNIT (25MCG) TABLET PO SCH (09:19)
[2021-02-24] MEDS: Cyanocobalamin (B-12) 1,000 MCG TABLET PO SCH (09:20)
[2021-02-24] MEDS: Magnesium Oxide 400 MG TABLET PO SCH (09:20)
[2021-02-24] MEDS: Ascorbic Acid 500 MG TABLET PO SCH (09:20)
[2021-02-24] MEDS: Triamcinolone Acet 0.1% CRM 15 GM TUBE TP SCH (09:20)
[2021-02-24] MEDS: D5% in Water 1,000 ML IVC SCH ×2 (09:40→18:45)
[2021-02-24 11:20] VITALS: BP 126/71; PULSE 102; TEMP 97.9; O2SAT 92
[2021-02-24] MEDS: Ketoconazole 2% CRM 15 GM TUBE TP SCH (18:46)
== END 2021-02-24 18:46 | DRG 177 ==
LOC: 2NENU 19:39 → SUATTDRO 19:39
PROVIDERS: ADMIT General Practice; ATTEND Internal Medicine